=== PATIENT | female | born 1955 | race Caucasian/White ===

== ENCOUNTER 2018-01-08 15:05 | Outpatient (CLI) | payer OTHER ==
--- NOTE | 2018-01-08 16:01 | RAD ---
CHEST 2 VIEWS: Date: 01/08/18 COMPARISON: 07/14/17. HISTORY: Cough. FINDINGS: Normal cardiac silhouette. Pulmonary vessels and pulmonary hilum are normal. Costophrenic angles are clear. No masses or consolidation. No pneumothorax or osseous abnormalities. IMPRESSION: No acute cardiopulmonary process. POS: [facility]
== END 2018-01-08 15:06 | disposition home or self-care (01) ==
LOC: RAD-FRANK 15:05
PROVIDERS: ATTEND Nurse Practitioner Family
DX: J44.9 Chronic obstructive pulmonary disease, unspecified (principal); J06.9 Acute upper respiratory infection, unspecified; I10 Essential (primary) hypertension; R91.1 Solitary pulmonary nodule; J02.9 Acute pharyngitis, unspecified; Z87.39 Personal history of other diseases of the musculoskeletal system and connective tissue
CPT/HCPCS: 71046; 80053; 83036; 83880; 85025; 85379

== ENCOUNTER 2018-01-10 19:21 | Emergency (ER) | payer OTHER ==
--- NOTE | 2018-01-10 20:02 | RAD ---
UPRIGHT PORTABLE CHEST ONE VIEW: 01/10/18 HISTORY: 62-year-old female with cough, increasing shortness of breath, fever and cough. COMPARISON: 01/08/18. FINDINGS: Heart size is normal. The lungs are clear. No pneumonia, edema, or pleural effusion. IMPRESSION: No acute intrathoracic disease. Stable from prior study. POS: [facility]
[2018-01-10] MEDS ORDERED: Acetaminophen 500 MG TAB ONE (20:03)
[2018-01-10] MEDS ORDERED: methylPREDNISolone Sod Succ/PF 125 MG/2 ML VIAL ONE (20:41)
[2018-01-10 20:47] LABS: #Eosinphils 0.1 thou/uL (0.0-0.7); #Lymphocytes 1.9 thou/uL (1.20-3.40); #Monocytes 0.6 thou/uL (0.11-0.59); #Neutrophils 2.6 thou/uL (1.40-6.50); %Basophils 0.3 % (0.0-1.0); %Lymphocytes 36.6 % (21.0-51.0); Mean Corpuscular HGB CONC 35.3 g/dL (32.0-36.0); Mean Corpuscular Hemoglobin 30.1 pg (27.0-31.0); Mean Corpuscular Volume 85.4 fl (81.0-99.0); Mean Platelet Volume 5.8 fL (7.4-10.4); Platelet Count 167 thou/uL (130-400); RBC Distribution Width 12.7 % (11.5-14.5); Red Blood Cell (RBC) Count 4.99 mill/uL (4.20-5.40); White Blood Cell (WBC) Count 5.2 thou/uL (4.8-10.8)
[2018-01-10] MEDS ORDERED: Albuterol Sulfate 2.5 mg/0.5 ml Neb ONE (20:50)
[2018-01-10 21:11] LABS: ALT (SGPT) 16 U/L (8-55); AST (SGOT) 21 U/L (5-34); Albumin 4.6 g/dL (3.4-4.8); Alkaline Phosphatase 94 U/L (40-150); Anion Gap 15 mmol/L (10-20); BUN (Urea Nitrogen) 17 mg/dL (9.8-20.1); Bilirubin, Total 0.5 mg/dL (0.2-1.2); Calc. Creatinine Clearance 0 mL/min (70-130); Calcium 9.8 mg/dL (7.8-10.44); Carbon Dioxide 27 mmol/L (23-31); Chloride 96 mmol/L (98-107); Estimated GFR-MDRD 66; Globulin 2.9 g/dL (2.4-3.5); Glucose 96 mg/dL (80-115); Potassium 3.3 mmol/L (3.5-5.1); Protein, Total 7.5 g/dL (6.0-8.3); Sodium 135 mmol/L (136-145)
[2018-01-10 21:14] LABS: CKMB 1.1 ng/mL (0-6.6); Troponin I Less than 0.010 ng/mL (< 0.028)
== END 2018-01-10 22:30 | disposition home or self-care (01) ==
LOC: ERS 19:21
DX: J18.9 Pneumonia, unspecified organism (principal); J44.0 Chronic obstructive pulmonary disease with (acute) lower respiratory infection; I10 Essential (primary) hypertension; Z79.52 Long term (current) use of systemic steroids
CPT/HCPCS: 71045; 80053; 82553; 83880; 84484; 85025; 93005; 94640; 96361; 96374; 96375; J0696; J2930; J7611; J7620

== ENCOUNTER 2018-03-26 09:52 | Outpatient (CLI) | payer OTHER ==
--- NOTE | 2018-03-26 10:17 | RAD ---
FOUR VIEWS OF THE RIGHT KNEE: COMPARISON: None. HISTORY: Right knee pain. FINDINGS: Four views of the right knee show no evidence of acute fracture or dislocation. There is severe medi al femorotibial osteophyte formation. Small osteophytes are seen in the patellofemoral and lateral f emorotibial compartments. No knee effusion is seen. IMPRESSION: Severe right knee osteoarthritis. POS: [facility]
== END 2018-03-26 09:53 | disposition home or self-care (01) ==
LOC: RAD-FRANK 09:52
PROVIDERS: ATTEND Nurse Practitioner Family
DX: M25.561 Pain in right knee (principal); M79.604 Pain in right leg; M17.11 Unilateral primary osteoarthritis, right knee
CPT/HCPCS: 36415; 80053; 82306; 82607; 82746; 83036; 84443; 85025

== ENCOUNTER 2018-04-14 10:09 | Outpatient (CLI) | payer OTHER ==
--- NOTE | 2018-04-14 11:20 | RAD ---
CHEST TWO VIEWS: INDICATIONS: Dyspnea. COMPARISON: 01/10/2018 FINDINGS: The cardiac silhouette is at the upper limits of normal in size. There is no lobar consolidation, ef fusion, or pneumothorax. IMPRESSION: No focal consolidation. POS: [facility]
== END 2018-04-14 10:10 | disposition home or self-care (01) ==
LOC: RAD 10:09
PROVIDERS: ATTEND Internal Medicine Pulmonary Disease
DX: R06.00 Dyspnea, unspecified (principal)
CPT/HCPCS: 71046

== ENCOUNTER 2018-05-12 08:28 | Outpatient (CLI) | payer OTHER ==
[2018-05-12] MEDS ORDERED: ISOVUE-370 76%-LOCM 1 ML ONE (13:58)
== END 2018-05-12 08:29 | disposition home or self-care (01) ==
LOC: BICCT 08:28
PROVIDERS: ATTEND Nurse Practitioner Family
DX: J42 Unspecified chronic bronchitis (principal); I10 Essential (primary) hypertension; R91.1 Solitary pulmonary nodule; R63.5 Abnormal weight gain; R89.9 Unspecified abnormal finding in specimens from other organs, systems and tissues; R14.0 Abdominal distension (gaseous); R10.9 Unspecified abdominal pain; R93.8 Abnormal findings on diagnostic imaging of other specified body structures; Z87.39 Personal history of other diseases of the musculoskeletal system and connective tissue
CPT/HCPCS: 74177

== ENCOUNTER 2018-05-27 08:26 | Outpatient (CLI) | payer OTHER | END 2018-05-27 08:27 | disposition home or self-care (01) | LOC: BICMAMMO 08:26 | PROVIDERS: ATTEND Nurse Practitioner Family | DX: Z12.31 Encounter for screening mammogram for malignant neoplasm of breast (principal) | CPT/HCPCS: 77063; 77067 ==

== ENCOUNTER 2018-10-07 12:27 | Outpatient (CLI) | payer OTHER ==
[2018-10-07] MEDS ORDERED: Iopamidol 370 76% 100 ML VIAL ONE (13:32)
--- NOTE | 2018-10-07 13:51 | CT ---
CT CHEST WITH IV CONTRAST: HISTORY: Cough. COMPARISON: 06/12/2016 FINDINGS: Minimal bibasilar atelectasis. No pleural fluid, lung mass, pneumothorax, or mediastinal adenopathy. Bovine origin of the great vessels at the aortic arch. IMPRESSION: No significant abnormalities are demonstrated. POS: [facility]
--- NOTE | 2018-10-07 15:07 | ULT ---
DOPPLER ARTERIAL EVALUATION OF BOTH LOWER EXTREMITIES: INDICATION: History of bilateral leg pain, hypertension, and vasculitis. FINDINGS: There are triphasic waveforms from the common femoral artery to the level of the posterior tibial art primo with more biphasic-appearing waveforms within the bilateral dorsalis pedis arteries. No hemodyna mically significant stenosis is evident. IMPRESSION: 1. Mild atherosclerotic disease at the level of the dorsal pedis artery. 2. No hemodynamically significant stenosis demonstrated. POS: [facility]
== END 2018-10-07 12:28 | disposition home or self-care (01) ==
LOC: CT 12:27
PROVIDERS: ATTEND Nurse Practitioner Family
DX: R05 Cough (principal); J44.9 Chronic obstructive pulmonary disease, unspecified; R06.02 Shortness of breath; M94.0 Chondrocostal junction syndrome [Tietze]; I10 Essential (primary) hypertension; I77.6 Arteritis, unspecified; R89.9 Unspecified abnormal finding in specimens from other organs, systems and tissues; M79.604 Pain in right leg; M79.605 Pain in left leg; Z87.39 Personal history of other diseases of the musculoskeletal system and connective tissue; I70.8 Atherosclerosis of other arteries
CPT/HCPCS: 71260; 93923; Q9967

== ENCOUNTER 2019-01-10 14:34 | Emergency (ER) | payer OTHER ==
--- NOTE | 2019-01-10 16:12 | RAD ---
2 views left tibia and fibula. Ruben history: Patient slipped with pain. AP and lateral views left tibia and fibula obtained. No evidence of left tibial or fibular fractures, subluxations or bony lesions seen. IMPRESSION: Unremarkable 2 views left tibia and fibula.
--- NOTE | 2019-01-10 16:15 | RAD ---
4 views left knee. HISTORY: Fall with left knee pain. AP, lateral and both oblique views left knee obtained. Images demonstrate the patient had a previous extensive left knee osteoarthritis. Chronic osteophytes seen. There is depression of the lateral tibial plateau likely due to due to chronic changes. No evidence of acute left knee fractures or bony lesion seen. IMPRESSION: Chronic left knee osteoarthritic changes with no evidence of acute abnormality seen.
== END 2019-01-10 16:29 | disposition home or self-care (01) ==
LOC: ERS 14:34
DX: S80.02XA Contusion of left knee, initial encounter (principal); I10 Essential (primary) hypertension; J44.9 Chronic obstructive pulmonary disease, unspecified; Z79.899 Other long term (current) drug therapy; W01.0XXA Fall on same level from slipping, tripping and stumbling without subsequent striking against object, initial encounter

== ENCOUNTER 2019-09-28 15:24 | Outpatient (CLI) | payer OTHER ==
--- NOTE | 2019-09-28 15:47 | MMO ---
Bilateral MAMMO Bilat Screen [facility]. CLINICAL HISTORY: Patient is 64 years old and is seen for screening. The patient has no family history of breast cancer. The patient has no personal history of cancer. VIEWS: The views performed were: bilateral craniocaudal with tomosynthesis and bilateral mediolateral oblique with tomosynthesis. FILMS COMPARED: The present examination has been compared to a prior imaging study performed at [facility] [place] on 05/27/2018. This study has been interpreted with the assistance of computer-aided detection. MAMMOGRAM FINDINGS: The breasts are heterogeneously dense, which could obscure a lesion on mammography. There are no suspicious masses, suspicious calcifications, or new areas of architectural distortion. IMPRESSION: THERE IS NO MAMMOGRAPHIC EVIDENCE OF MALIGNANCY. A ROUTINE FOLLOW-UP MAMMOGRAM IN 1 YEAR IS RECOMMENDED. THE RESULTS OF THIS EXAM WERE SENT TO THE PATIENT. ACR BI-RADS Category 1 - Negative MAMMOGRAPHY NOTE: 1. A negative mammogram report should not delay a biopsy if a dominant of clinically suspicious mass is present. 2. Approximately 10% to 15% of breast cancers are not detected by mammography. 3. Adenosis and dense breasts may obscure an underlying neoplasm. Reported by: DORA MELÉNDEZ MD Electonically Signed: [id number]
== END 2019-09-28 15:25 | disposition home or self-care (01) ==
LOC: BICMAMMO 15:24
PROVIDERS: ATTEND Nurse Practitioner Family
DX: Z12.31 Encounter for screening mammogram for malignant neoplasm of breast (principal)
CPT/HCPCS: 77063; 77067

== ENCOUNTER 2020-03-14 09:39 | Outpatient (CLI) | payer OTHER ==
--- NOTE | 2020-03-14 09:51 | RAD ---
Exam: Lumbar spine 3 views HISTORY: Pain FINDINGS: 5 lumbar type vertebra. Preserved vertebral body heights. No fracture. Mild osteophyte form ation at multiple levels. No spondylolysis. 5.8 mm of anterolisthesis of L4. Mild hypertrophic changes in the posterior element s at L4-L5 and L5-S1. Visualized bony pelvis and sacrum are intact Densities along the right paraspinal region as well as the left aspect of the pelvis and midline of t he pelvis. Correlation made with previous CT only demonstrates a left hemipelvic density. Correlate clinically. Impression: 1. No significant loss of disc space height. 2. Grade 1 anterolisthesis of L4 3. Mild hypertrophic changes in the posterior elements at L4-L5 and L5-S1. 4. Densities in the abdomen and pelvis as above. Additional imaging if warranted.
== END 2020-03-14 09:40 | disposition home or self-care (01) ==
LOC: RAD-FRANK 09:39
PROVIDERS: ATTEND Nurse Practitioner Family
DX: M79.604 Pain in right leg (principal); I10 Essential (primary) hypertension; R60.0 Localized edema; N39.0 Urinary tract infection, site not specified; M43.16 Spondylolisthesis, lumbar region
CPT/HCPCS: 36415; 72100; 80053; 80061; 82306; 83520; 83880; 84443; 84550; 85025; 86038; 86200; 86225; 87086

== ENCOUNTER 2020-06-16 10:03 | Outpatient (CLI) | payer MEDICARE, OTHER ==
--- NOTE | 2020-06-16 14:04 | CT ---
CT OF CHEST AND ABDOMEN AND PELVIS PERFORMED WITH CONTRAST ENHANCEMENT: 06/16/20 HISTORY: COPD. Lung nodule. Cough. Abdominal pain. Low back pain. Bilateral leg radiculopathy. COMPARISON: CT examination of the chest of 10/07/18 and abdomen and pelvis of 05/12/18. The lungs show some minimal reticular scarring in the lung bases. There is no infiltrative lung proce ss present. No pulmonary nodules identified. No pleural effusions. I do not see any bronchiectatic ch matthew or any definitive emphysematous type change. No significant mediastinal, hilar or axillary adenopathy. CT OF ABDOMEN PERFORMED WITH CONTRAST ENHANCEMENT: Suggestion of some mild fatty change to the liver. No focal lesions. The spleen, pancreas and gallbla dder regions all appear unremarkable. Right and left adrenal glands and right and left kidneys are normal in size. No significant periaorti c or mesenteric adenopathy. CT OF PELVIS PERFORMED WITH CONTRAST ENHANCEMENT: The bladder is not distended. There is no adenopathy, mass or free fluid. Review of osseous structures show arthritic changes of the spine. IMPRESSION: 1. Suggestion of some elements of fatty change of the liver. 2. No acute findings of the chest, abdomen or pelvis. POS: [facility] [place]
== END 2020-06-16 10:04 | disposition home or self-care (01) ==
LOC: BICCT 10:03
PROVIDERS: ATTEND Nurse Practitioner Family
DX: J44.9 Chronic obstructive pulmonary disease, unspecified (principal); R91.1 Solitary pulmonary nodule; I10 Essential (primary) hypertension; R93.89 Abnormal findings on diagnostic imaging of other specified body structures; E66.9 Obesity, unspecified; E87.6 Hypokalemia; R05 Cough; R06.02 Shortness of breath; M79.89 Other specified soft tissue disorders; R73.09 Other abnormal glucose; R14.0 Abdominal distension (gaseous); R10.9 Unspecified abdominal pain; R89.9 Unspecified abnormal finding in specimens from other organs, systems and tissues; R60.0 Localized edema; R53.83 Other fatigue; M43.10 Spondylolisthesis, site unspecified; Z87.39 Personal history of other diseases of the musculoskeletal system and connective tissue; Z23 Encounter for immunization
CPT/HCPCS: 71260; 74177; 82565

== ENCOUNTER 2020-06-21 09:10 | Inpatient (IN) | payer MEDICARE, OTHER ==
[2020-06-21] MEDS ORDERED: Magnevist 469MG/ML 20 ML VIAL ONE (09:22)
[2020-06-21] MEDS ORDERED: Ketorolac Tromethamine 30 MG/ML VIAL ONE (09:47)
[2020-06-21] MEDS ORDERED: Morphine 4 MG/ML VIAL ONE ×2 (09:47→11:11)
[2020-06-21] MEDS ORDERED: Diazepam 5 MG TAB ONE (09:47)
[2020-06-21] MEDS ORDERED: Dexamethasone 10 MG/ML VIAL ONE (09:47)
[2020-06-21 11:23] LABS: #Basophils 0.1 thou/uL (0.0-0.2); #Eosinphils 0.2 thou/uL (0.0-0.7); #Lymphocytes 0.8 thou/uL (1.20-3.40); #Monocytes 0.4 thou/uL (0.11-0.59); #Neutrophils 4.3 thou/uL (1.40-6.50); %Basophils 1.1 % (0.0-1.0); %Eosinophils 2.8 % (0.0-10.0); %Lymphocytes 14.1 % (21.0-51.0); %Monocytes 7.6 % (0.0-10.0); %Neutrophils 74.4 % (42.0-75.0); Hemoglobin 13.7 g/dL (12.0-16.0); Mean Corpuscular Hemoglobin 29.4 pg (27.0-31.0); Mean Corpuscular Volume 86.4 fL (78.0-98.0); Mean Platelet Volume 6.7 fL (7.4-10.4); Platelet Count 175 thou/uL (130-400); RBC Distribution Width 12.9 % (11.5-14.5); Red Blood Cell (RBC) Count 4.66 mill/uL (4.20-5.40); White Blood Cell (WBC) Count 5.8 thou/uL (4.8-10.8)
[2020-06-21 11:50] LABS: ALT (SGPT) 18 U/L (8-55); AST (SGOT) 19 U/L (5-34); Albumin 4.4 g/dL (3.4-4.8); Alkaline Phosphatase 88 U/L (40-110); Anion Gap 13 mmol/L (10-20); BUN (Urea Nitrogen) 8 mg/dL (9.8-20.1); Bilirubin, Total 0.6 mg/dL (0.2-1.2); Calc. Creatinine Clearance 0 mL/min (70-130); Calcium 9.6 mg/dL (7.8-10.44); Carbon Dioxide 27 mmol/L (23-31); Chloride 97 mmol/L (98-107); Estimated GFR-MDRD 65; Globulin 2.7 g/dL (2.4-3.5); Glucose 106 mg/dL (80-115); Potassium 3.1 mmol/L (3.5-5.1); Protein, Total 7.1 g/dL (6.0-8.3); Sodium 134 mmol/L (136-145)
--- NOTE | 2020-06-21 14:17 | PDOC.HHP ---
Hospitalist HPI - History of Present Illness Back pain History of Present Illness: Ms. Larson is a 65-year-old female with a past medical history of hypertension, anxiety, COPD, degenerative disc disease who presents today ED for intractable back pain. Patient reports that her back pain began approximately 2 weeks ago with an acute worsening in severity 1 week ago. She reports she has been moving rooms around her house but has not has no recollection of injuring herself. She describes the pain as starting in the midline of her back above her hip and shooting down into the buttocks and down her leg. She saw her primary care provider for this who referred her to neurologist Dr. Panchal. Pt had CT abdomen/spine/pelvis on 06/16 which showed no acute abnormalities, fracutre, or spinal pathology. Dr. Panchal prescribed tizanidine and tramadol. Patient reports these did not improve her back pain and so she represented to her PCP today who sent her into the ER for pain control and MRI. Patient reports that the pain is been so bad she has been unable to walk or get out of bed without pain. Is able to stand and ambulate, but limited due to pain. Denies numbness or weakness. Denies bladder/bowel incontinence. Denies saddle anesthesia. Denies fever, night-sweats, chills or neck pain. In the ED initial vital signs shows 168/73, 83, 16, 98.5, 97% on RA. Na 134, K 3.1, BUN/Cr 8/0.87, WBC 5.8. CRP 3.34. Pt recieved toradol, morphine for pain control. Hospitalist ROS - Review of Systems Constitutional: denies: fever, chills, sweats, weakness, malaise, other Eyes: denies: pain, vision change, conjunctivae inflammation, eyelid inflammation, redness, other ENT: denies: ear pain, ear discharge, nose pain, nose discharge, nose congestion, mouth pain, mouth swelling, throat pain, throat swelling, other Respiratory: reports: shortness of breath (baseline). denies: cough, dry, hemoptysis, SOB with excertion, pleuritic pain, sputum, wheezing, other Cardiovascular: denies: chest pain, palpitations, orthopnea, paroxysmal noc. dyspnea, edema, light headedness, other Gastrointestinal: denies: nausea, vomiting, abdominal pain, diarrhea, constipation, melena, hematochezia, other Genitourinary: denies: dysuria, frequency, incontinence, hematuria, retention, other Musculoskeletal: reports: back pain, leg pain Skin: denies: rash, lesions, ty, bruising, other Neurological: denies: weakness, numbness, incoordination, change in speech, confusion, seizures, other - Medication Medications: Home medications include: Hydrochlorothiazide 25 mg Montelukast 10 mg Lexapro 20 mg Losartan 25 mg No known allergies Hospitalist History - Past Medical History Other Medical History: Past medical history includes hypertension, anxiety, COPD not on home oxygen - Past Surgical History Other Surgical History: Past surgical history includes spinal surgery on L4-L5 in 1993, appendectomy. - Family History Other Family History: Family history significant for mother who passed of lung cancer and father who passed a renal cancer. - Social History Smoking Status: Never smoker Alcohol: reports: None Drugs: reports: none Living Situation: Alone Activity level: independent ambulation - Exam General Appearance: NAD, awake alert Eye: PERRL, anicteric sclera ENT: normocephalic atraumatic, no oropharyngeal lesions, moist mucosa Neck: supple, symmetric, no JVD, no thyromegaly, no lymphadenopathy, no carotid bruit Heart: RRR, no murmur, no gallops, no rubs, normal peripheral pulses Respiratory: CTAB, no wheezes, no rales, no ronchi, normal chest expansion, no tachypnea, normal percussion Gastrointestinal: soft, non-tender, non-distended, normal bowel sounds, no palpable masses, no hepatomegaly, no splenomegaly, no bruit Extremities: no cyanosis, no clubbing, no edema Skin: normal turgor, no lesions, no rashes Neurological: cranial nerve grossly intact, normal sensation to touch, no weakness, no focal deficits, no new deficit Musculoskeletal: normal tone, normal strength, no muscle wasting Musculoskeletal - other findings: Straight leg test positive, reflexes intact, strength examination limited d Psychiatric: normal affect, normal behavior, A&O x 3 Hospitalist Results - Labs Result Diagrams: 06/22/20 05:17 06/22/20 05:17 Lab results: WBC 5.8 thou/uL (4.8-10.8) 06/21/20 11:11 Hgb 13.7 g/dL (12.0-16.0) 06/21/20 11:11 Hct 40.2 % (36.0-47.0) 06/21/20 11:11 MCV 86.4 fL (78.0-98.0) 06/21/20 11:11 Plt Count 175 thou/uL (130-400) 06/21/20 11:11 Neutrophils % 74.4 % (42.0-75.0) 06/21/20 11:11 Sodium 134 mmol/L (136-145) L 06/21/20 11:11 Potassium 3.1 mmol/L (3.5-5.1) L 06/21/20 11:11 Chloride 97 mmol/L (98-107) L 06/21/20 11:11 Carbon Dioxide 27 mmol/L (23-31) 06/21/20 11:11 BUN 8 mg/dL (9.8-20.1) L 06/21/20 11:11 Creatinine 0.87 mg/dL (0.6-1.1) 06/21/20 11:11 Glucose 106 mg/dL (80-115) 06/21/20 11:11 Calcium 9.6 mg/dL (7.8-10.44) 06/21/20 11:11 Total Bilirubin 0.6 mg/dL (0.2-1.2) 06/21/20 11:11 AST 19 U/L (5-34) 06/21/20 11:11 ALT 18 U/L (8-55) 06/21/20 11:11 Alkaline Phosphatase 88 U/L (40-110) 06/21/20 11:11 C-Reactive Protein 3.34 mg/dL (= or < 0.5) H 06/21/20 11:11 Serum Total Protein 7.1 g/dL (6.0-8.3) 06/21/20 11:11 Albumin 4.4 g/dL (3.4-4.8) 06/21/20 11:11 Hospitalist H&P A/P - Plan Plan: #Back pain 65-year-old female with past medical history of degenerative disc disease with spinal surgery 1993 presents with 2-week acute onset of severe right-sided low back pain. Pain starts at the level of L4, however is in S1 pattern. Patient had outpatient CT chest abdomen pelvis on 06/16 done which did not show any spinal abnormalities or any other acute pathology. Lumbar plain films also did not show acute pathology but did show mild anterolithesis of L4. Patient now with severe pain and weakness to the right lower extremity. Suspect weakness is most likely due to pain as pain patient is able to ambulate. Pt denies numbness or paresthesias. Patient received Toradol, morphine for pain control in the ED which she reports only modest improvement. ED physician contacted neurosurgery who is consulted. Will obtain MRI. MRI L-spine Morphine for pain control Stool softener Heating pad -Neurosurgery consulted #Hypokalemia Potassium 3.1 on admission. Will monitor and replete as needed. #Hypertension Continue home hydrochlorothiazide 25 mg, and losartan 25 mg #Anxiety Continue home Lexapro 20 mg #COPD History of COPD, not on home O2. Patient reports shortness of breath at baseline. Denies any worsening of her shortness of breath O2 sats 97% on room air. DVT prophylaxis: Lovenox Full code Patient has named her daughter Brittany as medical decision-maker. Case discussed with attending physician Dr. De Leon.
[2020-06-21] MEDS ORDERED: Senokot S 8.6-50 MG TAB PO PRN (14:26)
[2020-06-21] MEDS ORDERED: Ondansetron PF 4 MG/2 ML Vial IVP PRN (14:26)
[2020-06-21] MEDS ORDERED: Bisacodyl 5 MG TAB PO PRN (14:26)
[2020-06-21] MEDS ORDERED: Acetaminophen 325 MG TAB PO PRN (14:26)
--- NOTE | 2020-06-21 16:23 | MRI ---
Exam: Lumbar spine MRI with and without contrast HISTORY: Right leg and back pain. No known injury. No history of surgery. FINDINGS: Appropriate T1 marrow signal intensity of the lumbar vertebrae. Lumbar spine vertebral body height is maintained. There is no fracture. No significant STIR hyperintensity to suggest ligamentous injury or vertebral body edema Appropriate signal intensity of the visualized paraspinal muscles and solid organs. Conus medullaris terminates at the superior aspect of L1. There is mild leftward curvature of the lumbar spine. Postcontrast images do not demonstrate any abnormal enhancement with regards to the vertebral bodies. There is no abnormal enhancement within the thecal sac including the conus medullaris and cauda equina. Spondylolisthesis: L1-L2: 2.5 mm of retrolisthesis L2-L3: 3.3 mm of retrolisthesis L4-L5: 4 mm of anterolisthesis T12-L1: Adequate disc hydration. No posterior disc abnormality. No significant central canal stenosis or significant neural foraminal narrowing L1-L2: Disc desiccation with mild loss of disc space height. Broad-based disc bulge minimally flatten s the ventral thecal sac. No significant central canal stenosis. Mild bilateral foraminal narrowing due to disc material. L2-L3: Disc desiccation with mild loss of disc space height. Broad-based disc bulge, ligament flavum thickening and facet hypertrophy result in mild to moderate central canal stenosis. There is fluid in bilateral facet joints. Mild right and vhjy-et-wiyvvcep left neural foraminal narrowing L1 3-L4: Minimal disc desiccation without significant loss of disc space height. Broad-based disc bul ge, ligament flavum thickening and facet hypertrophy result in moderate central canal stenosis. Moderate bilateral neural foraminal narrowing L4-L5: Minimal disc desiccation. No significant loss of disc space height. Broad-based disc bulge, li gament flavum thickening and facet hypertrophy result in severe central canal stenosis. There is fluid in both facet joints. Moderate right and moderate to severe left neural foraminal narrowing L5-S1: There appears to be near complete fusion of the disc space. No significant central canal steno sis. Mild to moderate bilateral neural foraminal narrowing. IMPRESSION: 1. No pathologic enhancement of the vertebral bodies. No abnormal enhancement within the thecal sac i ncluding the cauda equina and conus medullaris 2. Degenerative changes of the lumbar spine as detailed above. There is severe central canal stenosis at L4-L5. Transcribed Date/Time: 06/21/2020 4:42 PM
[2020-06-21] MEDS: Morphine 2 MG/ML VIAL SLOW IVP PRN ×2 (16:32→20:31)
[2020-06-21 17:23] VITALS: BMI 38.9
[2020-06-21] MEDS ORDERED: Potassium Chloride 20 MEQ TAB PO SCH (18:45)
[2020-06-22] MEDS: Morphine 2 MG/ML VIAL SLOW IVP PRN ×5 (00:51→18:06)
[2020-06-22 05:48] LABS: #Lymphocytes 0.7 thou/uL (1.20-3.40); #Monocytes 0.3 thou/uL (0.11-0.59); #Neutrophils 5.5 thou/uL (1.40-6.50); %Basophils 0.5 % (0.0-1.0); %Eosinophils 0.2 % (0.0-10.0); %Lymphocytes 10.5 % (21.0-51.0); %Monocytes 5.2 % (0.0-10.0); %Neutrophils 83.7 % (42.0-75.0); Hemoglobin 14.1 g/dL (12.0-16.0); Mean Corpuscular HGB CONC 34.9 g/dL (32.0-36.0); Mean Corpuscular Hemoglobin 30.3 pg (27.0-31.0); Mean Corpuscular Volume 86.7 fL (78.0-98.0); Platelet Count 205 thou/uL (130-400); RBC Distribution Width 12.8 % (11.5-14.5); Red Blood Cell (RBC) Count 4.66 mill/uL (4.20-5.40); White Blood Cell (WBC) Count 6.6 thou/uL (4.8-10.8)
[2020-06-22 06:16] LABS: Anion Gap 16 mmol/L (10-20); BUN (Urea Nitrogen) 10 mg/dL (9.8-20.1); Calc. Creatinine Clearance 95 mL/min (70-130); Calcium 9.5 mg/dL (7.8-10.44); Carbon Dioxide 25 mmol/L (23-31); Chloride 96 mmol/L (98-107); Estimated GFR-MDRD 65; Glucose 187 mg/dL (80-115); Potassium 3.5 mmol/L (3.5-5.1); Sodium 133 mmol/L (136-145)
[2020-06-22] MEDS: Enoxaparin Sodium 40 MG/0.4 ML SYRINGE SC SCH (09:01)
[2020-06-22 12:50] LABS: SARS-CoV-2 MS2 Positive; SARS-CoV-2 N Gene Negative; SARS-CoV-2 S Gene Negative; SARS-CoV-2 by NAA Not Detected (NotDetected); SARS-CoV-2 orf1ab Negative
[2020-06-22] MEDS ORDERED: Acetaminophen/Codeine 30-300mg Tablet PO PRN (16:18)
[2020-06-22] MEDS: Acetaminophen/Codeine 30-300mg Tablet PO PRN (16:50)
[2020-06-22] MEDS: tiZANidine HCl 4 MG TAB PO PRN (16:50)
[2020-06-22] MEDS ORDERED: Losartan 25 MG TAB PO PRN (18:24)
--- NOTE | 2020-06-22 18:30 | PDOC.HOSPP ---
- Subjective Encounter Date: 06/22/20 Encounter Time: 18:25 Subjective: f/u for intractable back pain with MRI L-spine showing severe central canal stenosis L4-L5. Receiving Morphine Sulfate IV, Tramadol/Zanaflex. No bowel or bladder incontinence. - Objective Vital Signs & Weight: Vital Signs (12 hours) Temp Pulse Resp BP Pulse Ox 06/22/20 16:20 98.2 F 60 16 142/74 H 96 06/22/20 11:50 98.1 F 63 16 112/68 97 06/22/20 07:31 97.9 F 73 14 133/73 97 Weight Weight 206 lb I&O: 06/21/20 06/22/20 06/23/20 06:59 06:59 06:59 Intake Total 520 470 Balance 520 470 Result Diagrams: 06/22/20 05:17 06/22/20 05:17 Radiology Reviewed by me: Yes (MRI L-spine - severe central canal stenosis L4- L5) Hospitalist ROS - Medication Medications: Active Medications Generic Name Dose Route Start Last Admin Trade Name Freq PRN Reason Stop Dose Admin Acetaminophen 650 mg 06/21/20 14:26 06/21/20 19:07 Acetaminophen 325 Mg Tab PO 650 mg Q4H PRN Administration Headache/Fever/Mild Pain (1-3) Acetaminophen/Codeine Phosphate 2 tab 06/22/20 16:18 06/22/20 16:50 Acetaminophen/Codeine 30-300mg Tablet PO 2 tab Q6H PRN Administration Severe Pain (7-10) Enoxaparin Sodium 40 mg 06/22/20 09:00 06/22/20 09:01 Enoxaparin Sodium 40 Mg/0.4 Ml Syringe SC 40 mg 0900 BITA Administration Morphine Sulfate 2 mg 06/21/20 14:35 06/22/20 18:06 Morphine 2 Mg/Ml Vial SLOW IVP 2 mg Q4H PRN Administration Moderate to Severe Pain (6-10) Sodium Chloride 10 ml 06/21/20 14:26 06/22/20 13:17 Flush - Normal Saline 10 Ml Syringe IVF 10 ml PRN PRN Administration Saline Flush Tizanidine HCl 4 mg 06/22/20 16:17 06/22/20 16:50 Tizanidine Hcl 4 Mg Tab PO 4 mg TIDPRN PRN Administration Muscle Spasm - Exam General Appearance: NAD, awake alert Eye: PERRL, anicteric sclera ENT: normocephalic atraumatic, no oropharyngeal lesions Neck: supple, symmetric, no JVD, no thyromegaly, no lymphadenopathy Heart: RRR, no gallops, no rubs, normal peripheral pulses Heart - other findings: S1, S2 Respiratory: CTAB, no wheezes, no rales, no ronchi, normal chest expansion Gastrointestinal: soft, non-tender, non-distended, normal bowel sounds Extremities: no cyanosis, no clubbing, no edema Skin: normal turgor, no lesions Neurological: cranial nerve grossly intact, no new deficit Neurological - other findings: + SLR bilat Musculoskeletal: normal tone, normal strength Psychiatric: normal affect, A&O x 3 Hosp A/P (1) Intractable low back pain Code(s): M54.5 - LOW BACK PAIN Status: Acute Plan: Continue conservative mgmt, heating pad, add Toradol 30mg IV q6h, Morphine Sulfate/T#3, PT/OT (2) Radiculopathy Code(s): M54.10 - RADICULOPATHY, SITE UNSPECIFIED Status: Acute Plan: See #1 above (3) Hypokalemia Code(s): E87.6 - HYPOKALEMIA Status: Acute Plan: KCL supplementation, serial monitoring (4) HTN (hypertension) Code(s): I10 - ESSENTIAL (PRIMARY) HYPERTENSION Status: Chronic Qualifiers: Hypertension type: essential hypertension Qualified Code(s): I10 - Essential (primary) hypertension Plan: Resume home BP regimen - Plan plan discussed w/ family, out of bed/ambulate, DVT proph w/SCDs Stable currently Add Toradol IV Continue Morphine Sulfate Continue Tylenol #3 Heat pad Restoril 15mg HS Mag citrate AM lab: BMP, CBC
[2020-06-22] MEDS ORDERED: Temazepam 15 MG CAP PO PRN (18:44)
[2020-06-22] MEDS ORDERED: Ketorolac Tromethamine 30 MG/ML VIAL IVP SCH (18:45)
[2020-06-22] MEDS ORDERED: Magnesium Citrate 300 ML BOT PO SCH (19:00)
[2020-06-23] MEDS: Ketorolac Tromethamine 30 MG/ML VIAL IVP SCH ×3 (00:21→11:37)
[2020-06-23 05:29] LABS: #Lymphocytes 1.4 thou/uL (1.20-3.40); #Monocytes 0.6 thou/uL (0.11-0.59); #Neutrophils 4.7 thou/uL (1.40-6.50); %Basophils 0.2 % (0.0-1.0); %Eosinophils 0.7 % (0.0-10.0); %Lymphocytes 20.2 % (21.0-51.0); %Monocytes 8.3 % (0.0-10.0); %Neutrophils 70.6 % (42.0-75.0); Hemoglobin 12.6 g/dL (12.0-16.0); Mean Corpuscular HGB CONC 34.3 g/dL (32.0-36.0); Mean Corpuscular Hemoglobin 30.1 pg (27.0-31.0); Mean Corpuscular Volume 87.6 fL (78.0-98.0); Mean Platelet Volume 7.1 fL (7.4-10.4); Platelet Count 191 thou/uL (130-400); RBC Distribution Width 12.8 % (11.5-14.5); White Blood Cell (WBC) Count 6.7 thou/uL (4.8-10.8)
[2020-06-23 05:36] LABS: Anion Gap 13 mmol/L (10-20); BUN (Urea Nitrogen) 16 mg/dL (9.8-20.1); Calc. Creatinine Clearance 94 mL/min (70-130); Calcium 8.7 mg/dL (7.8-10.44); Carbon Dioxide 25 mmol/L (23-31); Chloride 100 mmol/L (98-107); Estimated GFR-MDRD 64; Glucose 104 mg/dL (80-115); Potassium 3.2 mmol/L (3.5-5.1); Sodium 135 mmol/L (136-145)
[2020-06-23] MEDS: Enoxaparin Sodium 40 MG/0.4 ML SYRINGE SC SCH (08:35)
[2020-06-23] MEDS ORDERED: Fluticasone Propionate Nasal Spray 16 gm Bottle NASAL SCH (09:00)
[2020-06-23] MEDS ORDERED: Loratadine 10 MG TAB PO SCH (09:00)
[2020-06-23] MEDS ORDERED: Montelukast Sodium 10 mg Tablet PO SCH (09:00)
[2020-06-23] MEDS ORDERED: Potassium Chloride 10 MEQ TAB PO SCH (09:00)
[2020-06-23] MEDS ORDERED: Hydrochlorothiazide 25 MG TAB PO SCH (09:00)
[2020-06-23] MEDS ORDERED: Escitalopram Oxalate 20 mg Tablet PO SCH (09:00)
[2020-06-23 12:41] VITALS: BP 137/74; TEMP 97.8
[2020-06-23] MEDS: tiZANidine HCl 4 MG TAB PO PRN (16:03)
[2020-06-23] MEDS: Acetaminophen/Codeine 30-300mg Tablet PO PRN (16:03)
[2020-06-23] MEDS ORDERED: Acetaminophen/Codeine 30-300mg Tablet PO PRN (16:21)
[2020-06-23] MEDS ORDERED: Potassium Chloride 20 MEQ TAB PO SCH (16:45)
--- NOTE | 2020-06-28 09:36 | DIS ---
DATE OF ADMISSION: 06/22/2020 DATE OF DISCHARGE: 06/23/2020 PRIMARY CARE PROVIDER: Leida Gamez. DISCHARGE DIAGNOSES: 1. Lumbar spinal stenosis. 2. Chronic back pain. 3. Degenerative changes of lumbar spine. CONDITION OF PATIENT ON THE DAY OF DISCHARGE: Stable. I assessed Ms. Mandujano on the day of discharge. She denies any chest pain or shortness of breath. Vital signs are stable. S1 and S2 are heard, regular. Lungs are clear to auscultation bilaterally. CONSULTATIONS DURING THIS HOSPITALIZATION: Neurosurgery, Dr. Schwartz. HOSPITAL COURSE: Ms. Mandujano is a pleasant 65-year-old lady, who was admitted to [facility] on June 22, 2020, for chronic back pain. MRI of the lumbar spine showed severe central canal stenosis at L4-L5 and degenerative changes of the lumbar spine. She was seen by Neurosurgery Service. Following the Neurosurgery consultation, she has been advised to follow up with her primary neurosurgeon, Dr. Panchal as an outpatient. DISCHARGE MEDICATIONS: I am giving her a prescription for Tylenol No. 3 one tablet every 8 hours as needed, 15 doses to be dispensed. Otherwise, no change was made to her pre-admission home medications. ACTIVITY: As tolerated. DIET: Heart healthy. DISCHARGE DESTINATION: Home. TIME SPENT: Total amount of time spent coordinating this discharge: 25 minutes. Job ID: [id number]
== END 2020-06-23 17:51 | disposition home or self-care (01) | DRG 552 ==
LOC: ERS 09:10 → SURG A 14:27 → OBSVTOIN 06-22 18:51
PROVIDERS: ADMIT Student in an Organized Health Care Education/Training Program; ATTEND Student in an Organized Health Care Education/Training Program
PROC: 3E0234Z Introduction of Serum, Toxoid and Vaccine into Muscle, Percutaneous Approach (ICD-10-PCS; principal; 2020-06-22)
DX: M54.16 Radiculopathy, lumbar region (principal); M48.061 Spinal stenosis, lumbar region without neurogenic claudication; F41.9 Anxiety disorder, unspecified; I10 Essential (primary) hypertension; E87.6 Hypokalemia; J44.9 Chronic obstructive pulmonary disease, unspecified; Z20.828 Contact with and (suspected) exposure to other viral communicable diseases; Z79.899 Other long term (current) drug therapy; Z90.49 Acquired absence of other specified parts of digestive tract; Z23 Encounter for immunization
CPT/HCPCS: 36415; 36600; 72158; 80048; 80053; 85025; 86140; 87635; 90471; 90732; 96372; 96374; 96376; A9579; G0009; G0378; J1100; J1650; J1885; J2270; U0003

== ENCOUNTER 2020-07-12 06:25 | Outpatient (CLI) | payer MEDICARE, OTHER ==
[2020-07-12 10:41] LABS: Hemoglobin 13.9 g/dL (12.0-16.0); Mean Corpuscular HGB CONC 34.5 G/DL (32.0-36.0); Mean Corpuscular Hemoglobin 28.8 PG (27.0-33.0); Mean Corpuscular Volume 83.4 fl (80.0-100.0); Platelet Count 184 10x3/uL (130-400); RBC Distribution Width 13.5 % (11.5-14.5); Red Blood Cell (RBC) Count 4.83 10x6/uL (3.90-5.20); White Blood Cell (WBC) Count 3.2 10x3/uL (4.5-11.0)
[2020-07-12 11:29] LABS: Anion Gap 16 mmol/L (10-20); BUN (Urea Nitrogen) 10 mg/dL (9.8-20.1); Calc. Creatinine Clearance 0 mL/min (70-130); Calcium 9.7 mg/dL (7.8-10.44); Carbon Dioxide 31 mmol/L (23-31); Chloride 95 mmol/L (98-107); Estimated GFR-MDRD 60; Glucose 148 mg/dL (80-115); Potassium 3.1 mmol/L (3.5-5.1); Sodium 139 mmol/L (136-145)
--- NOTE | 2020-07-12 21:10 | EKG ---
Test Reason : PREOP Blood Pressure : / mmHG Vent. Rate : 074 BPM Atrial Rate : 074 BPM P-R Int : 166 ms QRS Dur : 092 ms QT Int : 400 ms P-R-T Axes : 071 061 065 degrees QTc Int : 444 ms Normal sinus rhythm Normal ECG No previous ECGs available Confirmed by Tha CARMEN ([id number]) on 07/12/2020 9:10:25 PM Referred By: DERICK Confirmed By:Tha CARMEN
[2020-07-13 14:43] LABS: SARS-CoV-2 MS2 Positive; SARS-CoV-2 N Gene Negative; SARS-CoV-2 S Gene Negative; SARS-CoV-2 by NAA Not Detected (NotDetected); SARS-CoV-2 orf1ab Negative
== END 2020-07-12 06:26 | disposition home or self-care (01) ==
LOC: LABBT 06:25
PROVIDERS: ATTEND Neurological Surgery
DX: Z01.818 Encounter for other preprocedural examination (principal); Z20.828 Contact with and (suspected) exposure to other viral communicable diseases; M43.16 Spondylolisthesis, lumbar region
CPT/HCPCS: 80048; 85027; 93005; U0003; 87635; 93010

== ENCOUNTER 2020-07-17 07:04 | Observation (INO) | payer MEDICARE, OTHER ==
[2020-07-17] MEDS ORDERED: Fentanyl 100 MCG/2 ML VIAL ONE ×3 (09:33→11:41)
[2020-07-17] MEDS ORDERED: Promethazine HCl 25 MG/ML VIAL SLOW IVP PRN (10:36)
[2020-07-17] MEDS ORDERED: Ondansetron HCl/PF 4 MG/2 ML Vial IVP PRN ×2 (10:36→12:00)
[2020-07-17] MEDS ORDERED: Promethazine HCl 25 MG/ML VIAL IM PRN ×2 (10:36→14:30)
--- NOTE | 2020-07-17 11:20 | OP ---
DATE OF PROCEDURE: 07/17/2020 TRANSMISSION AND PROTECTION ENGINEER: Keith. PROCEDURES PERFORMED: 1. L4-L5 laminectomy. 2. Posterolateral arthrodesis. 3. BMP cancellous bone chips. 4. Local morselized autograft. DESCRIPTION OF PROCEDURE: The patient was brought to the operating room and intubated. She was rolled in a prone position on gel-filled chest rolls. An incision was made, exposing L4 and L5, which incorporated part of the previous incision. We exposed L4 and L5 and did seem that she had surgery at the L5 level previously. We performed complete L5 and inferior L4 laminectomy, was completely decompressing the L4-L5 interspace. We did not attempt to place hardware, but did prepare the posterolateral surfaces for the purpose of arthrodesis and in onlay fashion placed a combination of BMP on Gelfoam with cancellous bone chips and local morselized autograft in the lateral recesses, particularly on the right. The wound was extensively irrigated. Maximum hemostasis was secured. Vancomycin powder was applied and the wound was closed in anatomic layers over a drain. Job ID: [id number]
[2020-07-17] MEDS ORDERED: Morphine 4 MG/ML VIAL ONE (11:41)
[2020-07-17] MEDS ORDERED: HYDROmorphone 0.5 MG/0.5 ML SYRINGE ONE ×3 (11:58→12:36)
[2020-07-17] MEDS ORDERED: Promethazine HCl 25 MG/ML VIAL IM/IV PRN (12:00)
[2020-07-17] MEDS ORDERED: Dexamethasone 20 MG/5 ML VIAL ONE (12:12)
[2020-07-17] MEDS ORDERED: Ketorolac Tromethamine 30 MG/ML VIAL ONE (12:12)
[2020-07-17] MEDS ORDERED: Glycopyrrolate 0.2 MG/ML 5 ML SYRINGE ONE (12:12)
[2020-07-17] MEDS ORDERED: Labetalol HCl 100 MG/20 ML VIAL ONE (12:12)
[2020-07-17] MEDS ORDERED: Rocuronium Bromide 10 MG/ML (10ML VIAL) ONE (12:12)
[2020-07-17] MEDS ORDERED: Lidocaine 1% PF 5 ML VIAL ONE (12:12)
[2020-07-17] MEDS ORDERED: PROPOFOL 200 MG/20 ML VIAL ONE (12:12)
[2020-07-17] MEDS ORDERED: Ondansetron PF 4 MG/2 ML Vial ONE (12:12)
[2020-07-17] MEDS ORDERED: Milk Of Magnesia 30 ML UDCUP PO PRN (14:30)
[2020-07-17] MEDS ORDERED: Morphine 4 MG/ML VIAL SLOW IVP PRN (14:30)
[2020-07-17] MEDS ORDERED: Morphine 2 MG/ML VIAL SLOW IVP PRN (14:30)
[2020-07-17] MEDS ORDERED: Mag-Al 1200 mg/1200 mg/30 ML UDCUP PO PRN (14:30)
[2020-07-17] MEDS ORDERED: Ondansetron PF 4 MG/2 ML Vial IM PRN (14:30)
[2020-07-17] MEDS ORDERED: Promethazine 25 MG TAB PO PRN (14:30)
[2020-07-17] MEDS ORDERED: Acetaminophen/Codeine 30-300mg Tablet PO PRN (14:30)
[2020-07-17] MEDS ORDERED: traMADol HCl 50 MG TAB PO PRN ×2 (14:30)
[2020-07-17] MEDS ORDERED: Promethazine HCl 12.5 MG SUPP PR PRN (14:30)
[2020-07-17] MEDS ORDERED: Non-Formulary Medication 1 EACH PO PRN (14:33)
[2020-07-17] MEDS: tiZANidine HCl 4 MG TAB PO PRN (15:22)
[2020-07-17] MEDS: Acetaminophen/Codeine 30-300mg Tablet PO PRN ×2 (15:23→21:16)
[2020-07-17] MEDS: Sodium Chloride 0.9% 1,000 ML IV SCH (15:25)
[2020-07-17 15:47] VITALS: BMI 37.8
[2020-07-17] MEDS: CEFAZOLIN 2 GM in Premix Bag 1 BAG IVPB SCH (17:16)
[2020-07-17] MEDS ORDERED: Montelukast Sodium 10 mg Tablet PO SCH (21:00)
[2020-07-18] MEDS: CEFAZOLIN 2 GM in Premix Bag 1 BAG IVPB SCH ×2 (00:37→09:38)
[2020-07-18] MEDS: Acetaminophen/Codeine 30-300mg Tablet PO PRN ×3 (02:37→09:31)
[2020-07-18] MEDS: Sodium Chloride 0.9% 1,000 ML IV SCH (02:43)
[2020-07-18] MEDS: tiZANidine HCl 4 MG TAB PO PRN ×2 (06:37→11:12)
--- NOTE | 2020-07-18 07:18 | DIS ---
DATE OF ADMISSION: 07/17/2020 DATE OF DISCHARGE: 07/18/2020 DISCHARGE SUMMARY: The patient is a 65-year-old female, recently evaluated in our office for progressive back and leg pain with neurogenic claudication. She was found to have spondylolisthesis and stenosis at L4-L5. She underwent L4-L5 laminectomy and fusion onlay with BMP on 07/18/2020. She was fitted with an LSO brace following this procedure and transitioned to the Med/Surg floor. Her pain was well controlled with p.o. medications, she is tolerating a regular diet, and she is voiding appropriately. She has been mobilizing easily in the department and walked several times around without any difficulty. Her CHANEL drain had minimal output only 20 mL over the first night and was removed on postoperative day #1. I will plan to dismiss the patient to home. I have discussed home care precautions, provided with scripts for Tylenol No. 3 and tramadol. [employer]ICER [employer] was checked prior to discharge. Job ID: [id number]
[2020-07-18] MEDS ORDERED: Potassium Chloride 10 MEQ TAB PO SCH (08:00)
[2020-07-18] MEDS ORDERED: Hydrochlorothiazide 25 MG TAB PO SCH (09:00)
[2020-07-18] MEDS ORDERED: Fluticasone Propionate Nasal Spray 16 gm Bottle NASAL SCH (09:00)
[2020-07-18] MEDS ORDERED: Escitalopram Oxalate 20 mg Tablet PO SCH (09:00)
[2020-07-18] MEDS ORDERED: FLU VACC QS2020-21(65YR UP)/PF 240 MCG/0.7 ML SYRINGE IM ONE (09:00)
[2020-07-18 11:01] VITALS: BP 116/68; TEMP 97.9
== END 2020-07-18 11:30 | disposition home or self-care (01) ==
LOC: SDC 07:04 → SURG A 11:35
PROVIDERS: ADMIT Neurological Surgery; ATTEND Neurological Surgery
PROC: 0SG00AJ Fusion of Lumbar Vertebral Joint with Interbody Fusion Device, Posterior Approach, Anterior Column, Open Approach (ICD-10-PCS; principal; 2020-07-17)
DX: M43.16 Spondylolisthesis, lumbar region (principal); I10 Essential (primary) hypertension; J44.9 Chronic obstructive pulmonary disease, unspecified; Z79.899 Other long term (current) drug therapy; Z88.5 Allergy status to narcotic agent; Z88.6 Allergy status to analgesic agent
CPT/HCPCS: 76000; 96365; G0378; J0690; J1100; J1170; J1885; J2270; J2405; J2704; J3010; J3370

== ENCOUNTER 2020-08-08 12:31 | Outpatient (CLI) | payer MEDICARE, OTHER ==
--- NOTE | 2020-08-08 12:52 | RAD ---
EXAM: Lumbar spine 2 views: HISTORY: Spondylolisthesis of lumbar region COMPARISON: 06/21/2020 lumbar spine MRI FINDINGS: Laminectomy changes at L3, L4, and L5 with surgical midline hoa in place. No evidence for acute fracture or dislocation or significant acute osseous process. Alignment:Stable retrolisthesis of L3 on L4 and moderate anterolisthesis of L4 and L5. Discs: Multilevel disc space narrowing most marked at L5-S1 which may be partially fused. No evidence for a focal bone lesion. IMPRESSION: Postop changes as above.
== END 2020-08-08 12:32 | disposition home or self-care (01) ==
LOC: TBSIIMAG 12:31
PROVIDERS: ATTEND Neurological Surgery
DX: M43.16 Spondylolisthesis, lumbar region (principal); Z98.890 Other specified postprocedural states
CPT/HCPCS: 72100

== ENCOUNTER 2020-09-12 13:26 | Inpatient (IN) | payer MEDICARE, OTHER ==
[~2020-09-12 13:26] MED LIST: Iopamidol-370 76% 500 ML 1 ML ONE
[2020-09-12 14:20] LABS: #Eosinphils 0.1 thou/uL (0.0-0.7); #Lymphocytes 0.9 thou/uL (1.20-3.40); #Monocytes 0.4 thou/uL (0.11-0.59); #Neutrophils 6.9 thou/uL (1.40-6.50); %Basophils 0.4 % (0.0-1.0); %Eosinophils 0.8 % (0.0-10.0); %Lymphocytes 10.3 % (21.0-51.0); %Monocytes 4.6 % (0.0-10.0); Hemoglobin 15.4 g/dL (12.0-16.0); Mean Corpuscular HGB CONC 32.8 g/dL (32.0-36.0); Mean Corpuscular Hemoglobin 28.3 pg (27.0-31.0); Mean Corpuscular Volume 86.5 fL (78.0-98.0); RBC Distribution Width 12.7 % (11.5-14.5); Red Blood Cell (RBC) Count 5.45 mill/uL (4.20-5.40); White Blood Cell (WBC) Count 8.3 thou/uL (4.8-10.8)
--- NOTE | 2020-09-12 14:26 | RAD ---
EXAM: CHEST ONE VIEW HISTORY: Nausea, vomiting, and diarrhea. Abdominal problems. COMPARISON: 01/10/2018. FINDINGS: Cardiac silhouette is magnified by projection. The pulmonary vasculature is within normal limits. The lungs remain clear. No interval change from prior study. IMPRESSION: No acute cardiopulmonary process.
[2020-09-12 14:30] LABS: ALT (SGPT) 58 U/L (8-55); AST (SGOT) 66 U/L (5-34); Albumin 4.7 g/dL (3.4-4.8); Alkaline Phosphatase 112 U/L (40-110); Anion Gap 22 mmol/L (10-20); BUN (Urea Nitrogen) 14 mg/dL (9.8-20.1); Bilirubin, Total 0.9 mg/dL (0.2-1.2); Calc. Creatinine Clearance 0 mL/min (70-130); Calcium 9.2 mg/dL (7.8-10.44); Carbon Dioxide 18 mmol/L (23-31); Chloride 102 mmol/L (98-107); Glucose 133 mg/dL (80-115); Lipase 27 U/L (8-78); Potassium 3.2 mmol/L (3.5-5.1); Protein, Total 7.7 g/dL (6.0-8.3); Sodium 139 mmol/L (136-145)
[2020-09-12 14:38] LABS: Mean Platelet Volume 7.4 fL (7.4-10.4); Platelet Count 104 thou/uL (130-400); Platelet Morphology Comment Appears Decreased; RBC Morphology Normal
[2020-09-12] MEDS ORDERED: Haloperidol Lactate 5 MG/ML VIAL SLOW IVP SCH (14:45)
[2020-09-12 15:15] LABS: Bacteria/HPF None Seen HPF (None Seen); Bilirubin Negative (Negative); Blood, Urine Trace (Negative); Clarity Clear (Clear); Glucose, Urine (Dipstick) Normal (Negative); Ketone, Urine 20 mg/dL (Negative); Leukocyte Negative Leu/uL (Negative); Nitrite Negative (Negative); Protein, Urine (Dipstick) Negative (Neg-Trace); RBC/HPF 0-3 HPF (0-3); Specific Gravity, Urine 1.015 (1.002-1.036); Squamous Epithelial 0-3 HPF (0-3); Urobilinogen Normal mg/dL (Less than 2); WBC/HPF 0-3 HPF (0-3); pH, Urine 5.5 (5.0-9.0)
[2020-09-12] MEDS ORDERED: Aspirin Chewable 81 MG TAB ONE (15:33)
--- NOTE | 2020-09-12 15:36 | CT ---
EXAM: CT Abdomen Pelvis W Con PROVIDED CLINICAL HISTORY: Abdominal pain COMPARISON: 06/16/2020 FINDINGS: The visualized lung bases are free of significant opacity. There is fluid density seen about the pancreatic head and proximal pancreatic body with interstitial edema. There is normal pancreatic enhancement. There is no evidence for a focal pancreatic fluid collection. The splenic vein appears patent. The liver, spleen, kidneys and adrenal glands appear unremarkable. There is conspicuous gallbladder distention with suggestion of pericholecystic fluid. There is no bow el dilatation, additional inflammatory fat stranding, free intraperitoneal fluid or free intraperitoneal air apparent. There is no evidence for appendicitis. The regional major vascular structures appear unremarkable. There is no evidence for regional lymph n ode enlargement. The osseous structures demonstrate no concerning lytic or blastic lesions. Postoperative changes are seen involving the lumbar spine. IMPRESSION: 1. Findings compatible with uncomplicated acute pancreatitis. 2. Conspicuous gallbladder distention with suggestion of pericholecystic fluid. Consider correlation with right upper quadrant ultrasound as indicated.
[2020-09-12 15:52] LABS: CKMB 1.4 ng/mL (0-6.6)
--- NOTE | 2020-09-12 16:35 | ULT ---
Exam: Right upper quadrant ultrasound: HISTORY: Right upper quadrant abdominal pain. COMPARISON: CT abdomen on 09/12/2020 FINDINGS: Liver: Within normal limits Gallbladder: There is a large shadowing calculus seen in the region of the neck of the gallbladder me asuring 1.8 cm. The gallbladder is distended measuring 10.4 cm in length. Small amount of pericholecystic fluid is identified. No gallbladder wall thickening is present. Utility Sales And Service Manager was not able to elicit a sonographic Joya's sign. Common bile duct: The common duct is normal in caliber measuring 0.2 cm in diameter. Pancreas: Limited visualized portions of the pancreas demonstrate a normal sonographic appearance. No peripancreatic fluid or fluid collection is identified. Right kidney: Right kidney demonstrates a normal sonographic appearance. The right kidney measures 1 1.4 cm in length. IVC: The visualized IVC demonstrates a normal sonographic appearance. IMPRESSION: 1. Cholelithiasis and gallbladder distention with a tiny amount of adjacent pericholecystic fluid. Ch olecystitis in the correct clinical scenario is a possibility. 2. Common duct is normal in caliber.
[2020-09-12] MEDS ORDERED: Morphine 4 MG/ML VIAL ONE ×2 (17:28→20:49)
[2020-09-12] MEDS ORDERED: Ondansetron PF 4 MG/2 ML Vial ONE ×2 (17:28→20:49)
[2020-09-12 17:43] LABS: Troponin I 0.794 ng/mL (< 0.028)
[2020-09-12] MEDS ORDERED: hydrALAZINE 20 MG/ML VIAL ONE ×2 (18:31→19:57)
--- NOTE | 2020-09-12 20:04 | HP ---
PRIMARY CARE PHYSICIAN: Leida Gamez, [employer] HEAD-C CHIEF COMPLAINT: Abdominal pain and epigastric pain. HISTORY OF PRESENT ILLNESS: Ms. Mandujano is a very pleasant 65-year-old female, who has history of hypertension, COPD. She says that at about 10:00 a.m. this morning, she started having severe pain in her stomach, and in the epigastric and mid chest regions. She says it was a squeezing like pain and very severe. She started vomiting almost continuously. She cannot remember how many times she threw up. She also noted some shortness of breath when this happened as well. She denies any fevers or chills. No cough or congestion. No diarrhea or loose stools. However, due to her symptoms, she came to the emergency room for evaluation. There, it was found that she was noted to have slightly elevated liver function test as well as slightly elevated alkaline phosphatase. Abdominal ultrasound revealed cholelithiasis with tiny amount of pericholecystic fluid and she also had an elevated troponin and she is being admitted for probable acute cholecystitis as well as NSTEMI. The patient denies having any heart problems before. Prior to this, she was active and able to climb the steps without any difficulty. When asked if this was related to food, she says she ate about two pieces of toast early this morning, but that was 2 hours before the episode. Prior to this, no other symptoms. No leg pain or swelling. REVIEW OF SYSTEMS: All systems were reviewed and are negative except for that mentioned in the History of Present Illness. PAST MEDICAL HISTORY: Significant for hypertension, anxiety, COPD, and degenerative joint disease. PAST SURGICAL HISTORY: She had a L4-L5 back surgery in July 17 of this past year and an appendectomy. SOCIAL HISTORY: Denies any smoking or alcohol use. No drug use. She is . She has one daughter. Her name is Brittany Mendiola and she would like her to be her surrogate decision maker. FAMILY HISTORY: No history of any heritable diseases. CURRENT MEDICATIONS: She says she does not know the name of her medications, these will need to be reconciled. PHYSICAL EXAMINATION: GENERAL: She is alert and oriented. She appears to be in no acute distress, other than some abdominal discomfort. VITAL SIGNS: Blood pressure was 178/68 up to 194/94, heart rate 67, respiratory rate of 15, and temperature is 97.8. HEENT: Pupils are equal, round, and reactive. Extraocular muscles are intact. Her sclerae are anicteric. Throat; no erythema, no exudates. NECK: No adenopathy. No bruits. LUNGS: Clear to auscultation. There are no wheezing, no rales, no rhonchi. CARDIOVASCULAR: She had a normal S1 and S2. No S3 or S4. No murmurs, clicks, or rubs. ABDOMEN: Soft. She had exquisite epigastric tenderness and some tenderness in the right upper quadrant. There was some voluntary guarding, but no rebound. Bowel sounds are present. EXTREMITIES: On her extremities, there is no edema. No calf tenderness. No joint effusions. NEUROLOGIC: Nonfocal. SKIN AND INTEGUMENT: No skin changes. No rash. LABORATORY DATA: Sodium 139, potassium 3.2, chloride is 102, CO2 is 18, BUN of 14, creatinine 0.9, and glucose is 133. White blood cell count 8.3, hemoglobin 15.4, hematocrit is 47.1, and platelet count is 104. IMAGING DATA: On the ultrasound, again there was evidence of cholelithiasis and some pericholecystic fluid. She had a CT of the abdomen and pelvis. There was some findings compatible with acute pancreatitis and conspicuous gallbladder distention. ASSESSMENT AND PLAN: 1. This is a pleasant 65-year-old female, who presents with severe epigastric pain, elevated liver function test and ultrasound consistent with cholecystitis. She will be admitted to telemetry given the elevated troponin. The general surgeon coal conveyor operator has already been contacted and will evaluate the patient later. We will leave her n.p.o., place her on IV fluids and IV antiemetics and analgesics. We will hold off on antibiotics at this time as she does not have a leukocytosis or white count. 2. Non-ST elevation myocardial infarction. This is likely a demand ischemia. Cardiology has already been notified. We will go ahead and continue to trend her cardiac enzymes. Place her on nitrates and get an echocardiogram to assess her wall motion. Otherwise, further recommendations are as per the Cardiology and Surgery Team. Job ID: [id number]
[2020-09-12 20:16] LABS: SARS-CoV-2 NAA Rapid Test Not Detected (NotDetected)
[2020-09-12 20:38] LABS: Troponin I 1.841 ng/mL (< 0.028)
[2020-09-12] MEDS ORDERED: Nitroglycerin 2% Ointment 1 INCH/1 GM Packet ONE (20:49)
[2020-09-12] MEDS ORDERED: Heparin 10,000 UNITS/ 10 ML VIAL SLOW IVP SCH (21:30)
[2020-09-12] MEDS ORDERED: Heparin 25,000 units/D5W 500 ML IVPB SCH (21:30)
--- NOTE | 2020-09-12 21:35 | PDOC.BPN ---
- Brief Progress Note Encounter Date: 09/12/20 I was informed about patient's troponin increasing. At presentation was 0.1 and 0.7 and now 1.81. Patient generally uncomfortable with epigastric, left chest pain. She has nitro patch in place. Blood pressure stable however she is becoming tachycardic heart rate 1 15-1 20s. Plan to start her on heparin drip as her troponins appear too high for just demand ischemia and given her chest pain. She does have a mild thrombocytopenia of 104. We will continue monitoring her. We will continue monitoring on telemetry Cardiology evaluation in a.m.
[2020-09-12] MEDS: Morphine 4 MG/ML VIAL SLOW IVP PRN (22:32)
[2020-09-12] MEDS: Famotidine/PF 20 mg/2ml Vial SLOW IVP SCH (22:32)
[2020-09-12] MEDS: Ondansetron PF 4 MG/2 ML Vial IVP PRN (22:32)
[2020-09-12 22:36] VITALS: BMI 37.8
[2020-09-12 22:42] LABS: Hemoglobin 15.6 g/dL (12.0-16.0); Platelet Count 127 thou/uL (130-400)
[2020-09-12] MEDS: Nitroglycerin 2% Ointment 1 INCH/1 GM Packet TOP SCH (23:02)
[2020-09-12 23:33] LABS: Troponin I 3.764 ng/mL (< 0.028)
[2020-09-13] MEDS: Potassium Chloride 20 MEQ/100 ML PREMIX BAG IVPB SCH ×2 (00:20→02:35)
[2020-09-13] MEDS ORDERED: Scopolamine 1.5 mg/72 hour Patch TOP SCH (01:15)
[2020-09-13] MEDS: Ondansetron PF 4 MG/2 ML Vial IVP PRN ×4 (02:34→20:45)
[2020-09-13] MEDS: Morphine 4 MG/ML VIAL SLOW IVP PRN ×3 (03:54→20:45)
[2020-09-13] MEDS ORDERED: Metoclopramide HCl 10 MG/2 ML VIAL IVP SCH (04:15)
[2020-09-13] MEDS: Nitroglycerin 2% Ointment 1 INCH/1 GM Packet TOP SCH ×3 (05:13→22:46)
[2020-09-13 08:25] LABS: #Monocytes 0.7 thou/uL (0.11-0.59); #Neutrophils 6.5 thou/uL (1.40-6.50); %Eosinophils 0.3 % (0.0-10.0); %Lymphocytes 12.2 % (21.0-51.0); %Monocytes 8.4 % (0.0-10.0); %Neutrophils 79.1 % (42.0-75.0); Hemoglobin 15.7 g/dL (12.0-16.0); Mean Corpuscular HGB CONC 33.3 g/dL (32.0-36.0); Mean Corpuscular Hemoglobin 28.5 pg (27.0-31.0); Mean Corpuscular Volume 85.6 fL (78.0-98.0); Mean Platelet Volume 6.7 fL (7.4-10.4); Platelet Count 135 thou/uL (130-400); Red Blood Cell (RBC) Count 5.48 mill/uL (4.20-5.40); White Blood Cell (WBC) Count 8.2 thou/uL (4.8-10.8)
[2020-09-13 08:49] LABS: ALT (SGPT) 54 U/L (8-55); AST (SGOT) 73 U/L (5-34); Albumin 4.5 g/dL (3.4-4.8); Alkaline Phosphatase 105 U/L (40-110); Anion Gap 19 mmol/L (10-20); BUN (Urea Nitrogen) 9 mg/dL (9.8-20.1); Calc. Creatinine Clearance 93 mL/min (70-130); Calcium 9.2 mg/dL (7.8-10.44); Carbon Dioxide 22 mmol/L (23-31); Chloride 102 mmol/L (98-107); Globulin 3.1 g/dL (2.4-3.5); Glucose 165 mg/dL (80-115); Lipase 141 U/L (8-78); Potassium 3.4 mmol/L (3.5-5.1); Protein, Total 7.6 g/dL (6.0-8.3); Sodium 140 mmol/L (136-145)
[2020-09-13] MEDS: Famotidine/PF 20 mg/2ml Vial SLOW IVP SCH ×2 (08:57→20:45)
[2020-09-13] MEDS: Morphine 2 MG/ML VIAL SLOW IVP PRN (08:58)
[2020-09-13] MEDS ORDERED: Enoxaparin Sodium 40 MG/0.4 ML SYRINGE SC SCH (09:00)
[2020-09-13] MEDS ORDERED: FLU VACC QS2020-21(65YR UP)/PF 240 MCG/0.7 ML SYRINGE IM ONE (09:00)
[2020-09-13] MEDS: Escitalopram Oxalate 20 mg Tablet PO SCH (09:41)
[2020-09-13] MEDS ORDERED: Fentanyl 100 MCG/2 ML VIAL ONE (10:22)
[2020-09-13] MEDS ORDERED: Sodium Bicarbonate 2.5 MEQ/5 ML VIAL ONE (10:22)
[2020-09-13] MEDS ORDERED: Midazolam HCl 2 mg/2 ml Vial ONE (10:22)
[2020-09-13 10:53] LABS: PTT 29.3 sec (22.9-36.1); Prothrombin Time 13.3 sec (12.0-14.7)
[2020-09-13 11:19] LABS: Troponin I 5.286 ng/mL (< 0.028)
--- NOTE | 2020-09-13 11:49 | CT ---
Percutaneous cholecystostomy placement CT-guided Conscious sedation: At least 40 minutes spent with the patient for conscious sedation. FINDINGS: After explaining the procedure and answering all questions, limited CT imaging of the upper abdomen was performed. Sterile technique, buffered local anesthesia, CT guidance, conscious sedation, and a right anterolate ral intercostal approach were used to carefully advance a 19-gauge trocar into the gallbladder lumen through an appropriate purchase of hepatic parenchyma. 0.035 Amplatz wire used to hold position. Tract dilated to 6 Gabonese. A 6 Gabonese locking loop UreSil c atheter was placed into the gallbladder lumen. Approximately 5 cc black bile was aspirated and sent to laboratory for analysis. Drain was left to gravity, immediately decompressing the gallbladder from thick black bile. The catheter was secured externally with 0 silk suture. Patient tolerated the procedure well and was returned in improved condition. IMPRESSION : Technically successful CT-guided cholecystostomy.
[2020-09-13] MEDS: cefOXitin Sodium/Dextrose,Iso 2 GM in Premix Bag 1 BAG IVPB SCH ×2 (13:38→22:46)
[2020-09-13 13:39] LABS: Critical Call Chem Troponin I RESULT DECREASING; Troponin I 4.732 ng/mL (< 0.028)
--- NOTE | 2020-09-13 13:46 | CON ---
DATE OF CONSULTATION: 09/13/2020 REASON FOR CONSULTATION: Elevated troponin. HISTORY OF PRESENT ILLNESS: Ms. Mandujano is 65 years old, whom I saw 1 year ago. She initially presented with shortness of breath. She failed to follow up for any further appointments. She recently presented with abdominal pain, chest pain, nausea, vomiting. She was diagnosed with cholecystitis. She also had uncomplicated pancreatitis on CT scan, but her lipase and amylase were negative. She states she had chest pain yesterday, but no further chest pain noted. Her main complaint is significant abdominal discomfort with minimal palpation. She has been seen and evaluated by General Surgery, who feels this is consistent with cholecystitis. PAST MEDICAL HISTORY: 1. Insomnia. 2. Hypertension. 3. Chronic bronchitis. 4. COPD. 5. Asthma. 6. Depression. 7. Lumbar myelopathy. 8. Cervical myelopathy. HOME MEDICATIONS: Include; 1. Breo Ellipta. 2. Hydrochlorothiazide. 3. Potassium. 4. Vitamin D3. 5. ProAir. 6. Bupropion. REVIEW OF SYSTEMS: A 10-point review of systems is reviewed as above, otherwise negative. ALLERGIES: GUANFACINE AND HYDROCODONE. PHYSICAL EXAMINATION: VITAL SIGNS: Blood pressure 175/83, pulse 98, temperature 98.3. GENERAL: Patient is a pleasant woman, who is in no acute distress. The patient appears their stated age. NEUROLOGIC: The patient is alert and oriented x3 with no focal neurologic deficits. HEENT: Sclerae without icterus. Mouth has moist mucous membranes with normal pallor. NECK: No JVD. Carotid upstroke brisk. No bruits bilaterally. LUNGS: Clear to auscultation with unlabored respirations. BACK: No scoliosis or kyphosis. CARDIAC: Regular rate and rhythm with normal S1 and S2. No S3 or S4 noted. No significant rubs, murmurs, thrills, or gallops noted throughout the precordium. PMI is not displaced. There is no parasternal heave. ABDOMEN: Significant pain to mild palpation noted in 3 of 4 quadrants. EXTREMITIES: 2+ femoral and 2+ dorsalis pedis pulses. No cyanosis, clubbing, or edema. SKIN: No gross abnormalities. PERTINENT LABORATORY DATA: Creatinine 0.86. Peak troponin 5.2. Echo with Doppler pending. EKG shows normal sinus rhythm, normal EKG. IMPRESSION: 1. Elevated troponin. 2. Cholecystitis. RECOMMENDATIONS: Certainly concerning that her troponin was elevated. She did have chest pain, but difficult to say whether chest pain was related to nausea, vomiting, or her underlying condition. At this point, we will continue with conservative therapy. She has been placed on heparin appropriately discussed case with Dr. Esteban Mckay. Decided to proceed with percutaneous drainage of her gallbladder to help relieve the pressure and treat her with antibiotics as we sort out her cardiac status. Her echo is pending. Job ID: [id number]
[2020-09-13] MEDS ORDERED: cefOXitin 2 GM in Sodium Chloride 0.9% 100 ML IVPB SCH (14:00)
--- NOTE | 2020-09-13 15:06 | CON ---
DATE OF CONSULTATION: 09/13/2020 CONSULTING PHYSICIAN: Mat Wynn MD REASON FOR CONSULTATION: Abdominal pain, suspected cholecystitis. HISTORY OF PRESENT ILLNESS: The patient is a 65-year-old white female. Interestingly, I had seen her in the past in 1996, although neither she nor I can remember the reason for that inpatient visit. She developed onset of symptoms yesterday morning when she had multiple episodes of vomiting and diarrhea. Following this, she felt a left chest pain and abdominal discomfort. She presented to the emergency room. She underwent evaluation with a CT scan, ultrasound, and laboratory studies. Her CT scan had demonstrated findings potentially consistent with a pancreatitis. She was noted to have gallbladder wall thickening. Gallbladder ultrasound revealed cholelithiasis with again evidence of some cholecystitis. Interestingly, her laboratory studies revealed a normal white blood cell count of 8.3 with hemoglobin of 15.4. She did have left shift. Chemistry profile revealed normal liver function tests and normal lipase level. Her troponin was elevated on her initial series at 0.1. I was contacted at that point for recommendations. I was beginning a lengthy surgery and therefore recommendations were made over the phone. I recommended checking her serial troponins, if they were elevated, then she needed to be managed medically. Her troponin went up to initially 0.8 at 5 o'clock and she was admitted to the medical service. Cardiology was consulted and she was seen by them this morning. Her troponin level continue to elevated up to a high of 5.2 at 10:[address] Beasley saw from a cardiology standpoint and he and I spoke this morning regarding options for continued treatment in light of the significant troponin elevation. It was recognized she had substantial abdominal discomfort. The patient tells me that she did have diarrhea yesterday. She complains of abdominal pain diffusely. PAST MEDICAL HISTORY: 1. Hypertension. 2. Anxiety. 3. COPD (secondhand smoke from her ). 4. Degenerative joint disease. PAST SURGICAL HISTORY: Lumbar back surgery in July of this last year and appendectomy in the past. MEDICATIONS: Her current medications are uncertain. She has been started on escitalopram and metoprolol. She had been on a heparin drip overnight. ALLERGIES: GUAIFENESIN AND HYDROCODONE. PERSONAL AND SOCIAL HISTORY: She had never smoked and does not drink alcohol. She is . She has one daughter. She lives in [place]. Her primary care physician is WENDY Bowers. REVIEW OF SYSTEMS: Otherwise, unremarkable. FAMILY HISTORY: Noncontributory. PHYSICAL EXAMINATION: VITAL SIGNS: Her temperature is 98.3, pulse is 98, and blood pressure 175/83. LUNGS: Clear to auscultation. CARDIAC: Regular rate and rhythm. ABDOMEN: Moderately obese. She has diffuse tenderness, but this appears to primarily be within the right upper quadrant. She does complain of bilateral lower quadrant discomfort. There is no tenderness at all in the left upper quadrant. Bowel sounds are present and essentially normoactive. EXTREMITIES: Unremarkable. LABORATORY DATA: I repeated her laboratory studies this morning and her CBC shows a continued white blood cell count of 8.2. Her platelet count is 135. Her electrolytes are minimally abnormal. Her liver function tests were still essentially normal. Her lipase is elevated somewhat to 141. Her troponin has recently dropped down to 4.7. ASSESSMENT AND PLAN: The patient with abdominal pain, which is somewhat atypical for cholecystitis and that she does complain of pain with palpation in the lower abdomen. I suspect, however, that this is cholecystitis associated pain, but she does perhaps have a component of pancreatitis that is a cause of her lower abdominal discomfort. I think that gallbladder intervention is appropriate. However, in light of her markedly elevation of troponin and uncertain cardiac status, surgery is best avoided at this time. I have therefore recommended a CT-guided cholecystostomy tube to decompress the gallbladder. Antibiotics will be continued nakul-procedurally. Her heparin will have to be discontinued for the procedure and may be continued per Medical/Cardiology Services desires. I have spoken with Radiology (Dr. Herring) regarding this and he will arrange for the cholecystostomy tube placement. Job ID: [id number]
[2020-09-13] MEDS: Dextrose 5 % And 0.9 % NaCl 1,000 ML IV SCH (17:40)
--- NOTE | 2020-09-13 18:18 | PDOC.HOSPP ---
- Subjective Encounter Date: 09/13/20 Encounter Time: 15:00 Subjective: Patient up in bed complains of some chest pain. However her pain is reproducible on palpation she complains also of abdominal pain - Objective Vital Signs & Weight: Vital Signs (12 hours) Temp Pulse Resp BP Pulse Ox 09/13/20 16:00 98.9 F 92 19 157/76 H 97 09/13/20 11:55 98.5 F 97 17 151/79 H 98 09/13/20 07:38 98.3 F 98 17 175/83 H 99 Weight Weight 200 lb Result Diagrams: 09/13/20 08:06 09/13/20 08:06 Additional Labs: Accuchecks 09/13/20 09/13/20 16:39 05:25 POC Glucose 115 H 171 H Hospitalist ROS - Review of Systems Cardiovascular: reports: chest pain Gastrointestinal: reports: abdominal pain Genitourinary: denies: dysuria, frequency, incontinence, hematuria, retention, other Musculoskeletal: denies: neck pain, shoulder pain, arm pain, back pain, hand pain, leg pain, foot pain, other - Medication Medications: Active Medications Generic Name Dose Route Start Last Admin Trade Name Freq PRN Reason Stop Dose Admin Escitalopram Oxalate 20 mg 09/13/20 09:00 09/13/20 09:41 Escitalopram Oxalate 20 Mg Tablet PO 20 mg DAILY BITA Administration Famotidine 20 mg 09/12/20 21:00 09/13/20 08:57 Famotidine/Pf 20 Mg/2ml Vial SLOW IVP 20 mg Q12HR BITA Administration Cefoxitin Sodium/Dextrose 2 gm 50 mls @ 100 mls/hr 09/13/20 14:00 09/13/20 13:38 / Device IVPB 50 mls Q8HR BITA Administration Dextrose/Sodium Chloride 1,000 mls @ 50 mls/hr 09/13/20 17:30 09/13/20 17:40 D5 0.9% Ns IV 1,000 mls .Q20H BITA Administration Morphine Sulfate 2 mg 09/12/20 19:13 09/13/20 08:58 Morphine 2 Mg/Ml Vial SLOW IVP 2 mg Q4H PRN Administration Moderate Pain (4-6) Morphine Sulfate 4 mg 09/12/20 19:13 09/13/20 13:36 Morphine 4 Mg/Ml Vial SLOW IVP 4 mg Q4H PRN Administration Severe Pain (7-10) Nitroglycerin 1 inch 09/12/20 22:00 09/13/20 13:38 Nitroglycerin 2% Ointment 1 Inch/1 Gm Packet TOP 1 inch Q8HR BITA Administration Ondansetron HCl 4 mg 09/12/20 19:13 09/13/20 13:38 Ondansetron Pf 4 Mg/2 Ml Vial IVP 4 mg Q6H PRN Administration Nausea/Vomiting Sodium Chloride 10 ml 09/13/20 09:00 09/13/20 08:58 Flush - Normal Saline 10 Ml Syringe IVF 10 ml Q12HR BITA Administration - Exam Heart: negative: RRR, no murmur, no gallops, no rubs, normal peripheral pulses, irregular, diminshed peripheral pulses, murmur present, II/IV, III/IV Respiratory: negative: CTAB, no wheezes, no rales, no ronchi, normal chest expansion, no tachypnea, normal percussion, rales, rhonchi, tachypneic, wheezes Gastrointestinal: soft Gastrointestinal - other findings: Drain noted. Hosp A/P (1) NSTEMI (non-ST elevated myocardial infarction) Code(s): I21.4 - NON-ST ELEVATION (NSTEMI) MYOCARDIAL INFARCTION Status: Acute (2) Abdominal pain Code(s): R10.9 - UNSPECIFIED ABDOMINAL PAIN Status: Acute (3) HTN (hypertension) Code(s): I10 - ESSENTIAL (PRIMARY) HYPERTENSION Status: Chronic Qualifiers: Hypertension type: essential hypertension Qualified Code(s): I10 - Essential (primary) hypertension (4) Acute pancreatitis Code(s): K85.90 - ACUTE PANCREATITIS WITHOUT NECROSIS OR INFECTION, UNSP Status: Acute (5) Cholecystitis Code(s): K81.9 - CHOLECYSTITIS, UNSPECIFIED Status: Acute - Plan Patient's pancreatitis most likely associated with cholecystitis. Patient underwent a CT-guided drainage of the gallbladder. Significant elevation of tro ponins we will start patient on Lovenox aspirin and statin. EKG indicates sinus bradycardia. We will check an EKG. We will continue antibiotics per surgical recommendations
[2020-09-13 18:40] LABS: Critical Call Chem Troponin I RESULT DECREASING; Troponin I 4.479 ng/mL (< 0.028)
[2020-09-13] MEDS: Atorvastatin Calcium 20 MG TAB PO SCH (20:45)
[2020-09-13] MEDS: Acetaminophen 325 MG TAB PO PRN (20:46)
[2020-09-13] MEDS: Enoxaparin Sodium 100 MG/ML SYRINGE SC SCH (20:46)
[2020-09-14] MEDS: Morphine 4 MG/ML VIAL SLOW IVP PRN (01:53)
[2020-09-14] MEDS: Ondansetron PF 4 MG/2 ML Vial IVP PRN (01:53)
[2020-09-14 04:32] LABS: #Basophils 0.1 thou/uL (0.0-0.2); #Lymphocytes 1.3 thou/uL (1.20-3.40); #Monocytes 0.8 thou/uL (0.11-0.59); #Neutrophils 5.4 thou/uL (1.40-6.50); %Basophils 0.7 % (0.0-1.0); %Eosinophils 0.2 % (0.0-10.0); %Lymphocytes 17.7 % (21.0-51.0); %Monocytes 10.2 % (0.0-10.0); %Neutrophils 71.2 % (42.0-75.0); Hemoglobin 14.6 g/dL (12.0-16.0); Mean Corpuscular HGB CONC 32.9 g/dL (32.0-36.0); Mean Corpuscular Hemoglobin 28.1 pg (27.0-31.0); Mean Corpuscular Volume 85.5 fL (78.0-98.0); Mean Platelet Volume 6.5 fL (7.4-10.4); Platelet Count 139 thou/uL (130-400); RBC Distribution Width 13.2 % (11.5-14.5); White Blood Cell (WBC) Count 7.6 thou/uL (4.8-10.8)
[2020-09-14 04:55] LABS: ALT (SGPT) 49 U/L (8-55); AST (SGOT) 71 U/L (5-34); Albumin 4.2 g/dL (3.4-4.8); Alkaline Phosphatase 95 U/L (40-110); Anion Gap 13 mmol/L (10-20); BUN (Urea Nitrogen) 10 mg/dL (9.8-20.1); Bilirubin, Total 0.9 mg/dL (0.2-1.2); Calc. Creatinine Clearance 94 mL/min (70-130); Calcium 9.3 mg/dL (7.8-10.44); Carbon Dioxide 26 mmol/L (23-31); Chloride 104 mmol/L (98-107); Glucose 136 mg/dL (80-115); Lipase 77 U/L (8-78); Potassium 3.2 mmol/L (3.5-5.1); Protein, Total 7.2 g/dL (6.0-8.3); Sodium 140 mmol/L (136-145)
[2020-09-14] MEDS: cefOXitin Sodium/Dextrose,Iso 2 GM in Premix Bag 1 BAG IVPB SCH ×3 (05:45→21:05)
[2020-09-14] MEDS: Nitroglycerin 2% Ointment 1 INCH/1 GM Packet TOP SCH ×3 (05:45→21:05)
[2020-09-14] MEDS: Aspirin 81 mg Enteric Coated Tablet PO SCH (08:33)
[2020-09-14] MEDS: Escitalopram Oxalate 20 mg Tablet PO SCH (08:33)
[2020-09-14] MEDS: Famotidine/PF 20 mg/2ml Vial SLOW IVP SCH ×2 (08:33→21:05)
[2020-09-14] MEDS: Acetaminophen 325 MG TAB PO PRN (08:33)
[2020-09-14] MEDS: Enoxaparin Sodium 100 MG/ML SYRINGE SC SCH (08:34)
[2020-09-14] MEDS ORDERED: Sodium Chloride 0.9% 1,000 ML IV SCH (10:15)
[2020-09-14] MEDS ORDERED: Communication Order-Pharmacy FS SCH (10:15)
--- NOTE | 2020-09-14 10:47 | CT ---
Percutaneous cholecystostomy placement CT-guided Conscious sedation: At least 40 minutes spent with the patient for conscious sedation. FINDINGS: After explaining the procedure and answering all questions, limited CT imaging of the upper abdomen was performed. Sterile technique, buffered local anesthesia, CT guidance, conscious sedation, and a right anterolate ral intercostal approach were used to carefully advance a 19-gauge trocar into the gallbladder lumen through an appropriate purchase of hepatic parenchyma. 0.035 Amplatz wire used to hold position. Tract dilated to 6 Nauruan. A 6 Nauruan locking loop UreSil c atheter was placed into the gallbladder lumen. Approximately 5 cc black bile was aspirated and sent to laboratory for analysis. Drain was left to gravity, immediately decompressing the gallbladder from thick black bile. The catheter was secured externally with 0 silk suture. Patient tolerated the procedure well and was returned in improved condition. IMPRESSION : Technically successful CT-guided cholecystostomy. Transcribed Date/Time: 09/14/2020 10:46 AM
[2020-09-14] MEDS ORDERED: Midazolam HCl 2 mg/2 ml Vial ONE (11:58)
[2020-09-14] MEDS ORDERED: Fentanyl 100 MCG/2 ML VIAL ONE (11:59)
--- NOTE | 2020-09-14 15:34 | PRG ---
DATE OF SERVICE: 09/14/2020 SUBJECTIVE: Ms. Mandujano had a cholecystostomy tube placed by Radiology yesterday. Cultures from this were sent and preliminarily show no organisms. Patient tells me that she feels substantially better since this was placed. There was about 250 mL of drainage yesterday. This appears to be very dark-colored bile. Her troponin level has remained elevated and was 4.48 yesterday evening. She denies chest pain currently. OBJECTIVE: VITAL SIGNS: She is afebrile. Pulse is in the 80s and regular. Blood pressure is elevated and 177/96. LUNGS: Clear to auscultation. ABDOMEN: Soft. Bowel sounds are present and normoactive. There is a dressing in the right upper quadrant associated with her cholecystostomy tube. As mentioned, the bag is filled with dark-colored bile. LABORATORY DATA: Her metabolic panel reveals that she is hypokalemic, but electrolytes otherwise normal. Liver function tests are essentially normal. Lipase back down to normal at 77. CBC shows a normal white blood cell count. Her left shift is resolving and essentially normal. Hemoglobin stable at 14.6. ASSESSMENT AND PLAN: The patient is stable following cholecystostomy tube placement. This was placed secondary to concern regarding possible non-ST elevation myocardial infarction. Dr. Beasley plans on cardiac catheterization today, which I told him should be fine. I had a long conversation with the patient and her daughter. I would recommend leaving the drain in place for 10 to 14 days. If all remains well with this, then I would likely remove the drain with plans for an interval cholecystectomy in about 8 weeks. Job ID: [id number]
[2020-09-14] MEDS: Dextrose 5 % And 0.9 % NaCl 1,000 ML IV SCH (15:57)
[2020-09-14] MEDS ORDERED: hydrALAZINE 20 MG/ML VIAL SLOW IVP PRN (18:02)
[2020-09-14] MEDS: Atorvastatin Calcium 20 MG TAB PO SCH (21:05)
[2020-09-14] MEDS: Morphine 2 MG/ML VIAL SLOW IVP PRN (21:13)
[2020-09-14 21:37] LABS: Hemoglobin 14.5 g/dL (12.0-16.0); Platelet Count 140 thou/uL (130-400)
[2020-09-15] MEDS: cefOXitin Sodium/Dextrose,Iso 2 GM in Premix Bag 1 BAG IVPB SCH ×2 (06:10→14:19)
[2020-09-15] MEDS: Nitroglycerin 2% Ointment 1 INCH/1 GM Packet TOP SCH ×2 (06:10→14:19)
[2020-09-15] MEDS: Morphine 2 MG/ML VIAL SLOW IVP PRN (06:10)
--- NOTE | 2020-09-15 07:20 | PDOC.GSPN ---
Surgery Progress Note: Subj - Subjective Narrative: 65-year-old female s/p cholecystostomy tube placement for cholecystitis. No overnight events. She reports epigastric pain, described as a "squeezing" or "tightness" and rated 5/10. Denies radiation to the back. Her tube drained about 50 mL of dark bilious fluid since placement. She reports associated nausea, hiccups and appetite change. She has 1 BM yesterday which was formed with small amount of blood. Patient reports very little ambulation, only to use the bath room. She denies fever, chills, night sweats, diaphoresis, lightheadedness, chest pain, SOB, palpitations, bruising, constipation, dysuria or hematuria or skin changes. Surgery Progress Note: Obj - Vital signs Vital signs: Vital Signs - Most Recent Temp Pulse Resp BP Pulse Ox 99.1 F 80 16 165/86 H 95 09/15/20 04:00 09/15/20 04:00 09/15/20 04:00 09/15/20 04:00 09/15/20 04:00 - Physical Exam General: no distress, well developed, well nourished, moderate pain (5/10, epigastric to LUQ squeezing pain) Cardiovascular: regular rate and rhythm, no murmur Respiratory: clear to auscultation, normal respiratory effort, breath sounds present. negative: wheezing Abdomen: soft, nondistended, decreased bowel sounds, tender, other (Positive Joya's sign). negative: rigid Integumentary: no abnormal pigmentation, no rash Wound: dressing clean,dry,intact, drainage (50 mL dark, bilious fluid), ostomy/colostomy (Cholecystostomy) Surgery Progress Note: Results - Labs Result Diagrams: 09/14/20 21:07 09/14/20 04:14 Lab results: Laboratory Results - last 12 hr 09/14/20 21:07 Hgb 14.5 Hct 43.3 Plt Count 140 No indication of bleeding. Surgery Progress Note: A/P - Plan Plan: 65-year-old female s/p percutaneous cholecystostomy tube placement for acute cholecystitis. She is stable today, being managed with temporizing gallbladder drainage d/t possibility of NSTEMI. We may proceed to interval laparoscopic cholecystectomy after cardiac assessment. 1. Cholecystitis: a. remove drain in 14 days b. continue with plan for interval lap cholecystectomy in 8 weeks 2. Pain: improving and adequately controlled 3. Low grade fever: 99.9 F, likely secondary to cholecystitis a. continue cefoxitine b. fluid cultures pending 4. Diet: tolerating 5. Prophylaxis: a. encouraged ambulation due to recent back surgery
[2020-09-15] MEDS: Aspirin 81 mg Enteric Coated Tablet PO SCH (08:57)
[2020-09-15] MEDS: Escitalopram Oxalate 20 mg Tablet PO SCH (08:57)
[2020-09-15] MEDS: Famotidine/PF 20 mg/2ml Vial SLOW IVP SCH (08:57)
[2020-09-15] MEDS ORDERED: Losartan 25 MG TAB PO SCH (09:00)
[2020-09-15] MEDS ORDERED: Electrolyte Replacement Protocol 1 EACH FS SCH (09:00)
[2020-09-15] MEDS ORDERED: Aspirin 325 MG TAB ONE (09:05)
--- NOTE | 2020-09-15 09:09 | PRG ---
DATE OF SERVICE: 09/15/2020 SUBJECTIVE: Ms. Mandujano is status post cholecystostomy tube placement for biliary decompression. She notes her abdominal discomfort remains improved from prior to her presentation. She underwent cardiac catheterization yesterday per Dr. Beasley. She was found to have no significant coronary artery disease and preserved cardiac ejection fraction. No cardiac intervention was necessary. I have spoken with Dr. Beasley regarding these findings and his recommendations. OBJECTIVE: VITAL SIGNS: She is afebrile. Vital signs are within normal limits. LUNGS: Clear. ABDOMEN: Benign. She has appropriate tenderness around the catheter insertion site. The remainder of the abdomen is essentially benign with normoactive bowel sounds. She tells me she had a bowel movement yesterday. ASSESSMENT AND PLAN: The patient who has a cholecystostomy tube and who presented with elevated troponins. The exact significance of her marked troponin elevation in relation to her lack of coronary artery disease is of uncertain significance. However, to err on the side of caution, I would not recommend proceeding with cholecystectomy until she is about 8 weeks out from this event. She is safe to be discharged home today. She will need to be instructed in drain care and maintenance. I will see her back in my office in 3 days to make sure she is doing okay with that drain and then plan on removing it about a week later. At that point, I will arrange followup to proceed with an interval laparoscopic cholecystectomy. I discussed all this in detail with the patient. She understands and again, she is stable for discharge from both Cardiology and Surgery standpoint today. Job ID: [id number]
[2020-09-15] MEDS ORDERED: Electrolyte Replacement Protocol FS PRN (09:15)
--- NOTE | 2020-09-15 13:53 | PRG ---
DATE OF SERVICE: 09/15/2020 SUBJECTIVE: Ms. Mandujano is doing well. No current complaints. OBJECTIVE: VITAL SIGNS: Blood pressure 136/72, pulse 69, temperature 98.1. LUNGS: Clear to auscultation. HEART: Regular rate and rhythm. ABDOMEN: Soft, nontender, nondistended. EXTREMITIES: No edema. IMPRESSION: 1. Elevated troponin. 2. Cholecystitis. RECOMMENDATIONS: Ms. Mandujano's recent echo suggested normal LVEF. She had no significant cord disease. This likely was secondary to demand ischemia. There is no concrete evidence on when to proceed with noncardiac surgery. After acute NH, which is not this current situation, recommendations to wait 8 weeks, although the guidelines are loose. Discussed the case with Dr. Esteban Mckay. We agreed to proceed with surgery in 6 to 8 weeks. Would recommend statin, beta tony, in addition to aspirin and ANA M inhibitor therapy. Okay from my standpoint to discharge home. Job ID: [id number]
--- NOTE | 2020-09-15 14:11 | PDOC.HOSPP ---
- Subjective Encounter Date: 09/14/20 Encounter Time: 13:00 Subjective: pt up in bed no complains. - Objective Vital Signs & Weight: Vital Signs (12 hours) Temp Pulse Resp BP Pulse Ox 09/15/20 11:32 98.1 F 69 15 136/72 100 09/15/20 08:59 92 L 09/15/20 08:00 97.5 F L 73 16 156/82 H 92 L 09/15/20 04:00 99.1 F 80 16 165/86 H 95 Weight Weight 184 lb 6.4 oz I&O: 09/14/20 09/15/20 09/16/20 06:59 06:59 06:59 Intake Total 580 240 Output Total 250 50 Balance -250 530 240 Result Diagrams: 09/14/20 21:07 09/14/20 04:14 Hospitalist ROS - Review of Systems Respiratory: denies: cough, dry, shortness of breath, hemoptysis, SOB with excertion, pleuritic pain, sputum, wheezing, other Cardiovascular: denies: chest pain, palpitations, orthopnea, paroxysmal noc. dyspnea, edema, light headedness, other Gastrointestinal: denies: nausea, vomiting, abdominal pain, diarrhea, constipation, melena, hematochezia, other - Medication Medications: Active Medications Generic Name Dose Route Start Last Admin Trade Name Shaheedq PRN Reason Stop Dose Admin Acetaminophen 650 mg 09/12/20 19:13 09/14/20 08:33 Acetaminophen 325 Mg Tab PO 650 mg Q4H PRN Administration Headache/Fever/Mild Pain (1-3) Aspirin 81 mg 09/14/20 09:00 09/15/20 08:57 Aspirin 81 Mg Enteric Coated Tablet PO 81 mg DAILY BITA Administration Atorvastatin Calcium 20 mg 09/13/20 21:00 09/14/20 21:05 Atorvastatin Calcium 20 Mg Tab PO 20 mg HS BITA Administration Escitalopram Oxalate 20 mg 09/13/20 09:00 09/15/20 08:57 Escitalopram Oxalate 20 Mg Tablet PO 20 mg DAILY BITA Administration Famotidine 20 mg 09/12/20 21:00 09/15/20 08:57 Famotidine/Pf 20 Mg/2ml Vial SLOW IVP 20 mg Q12HR BITA Administration Cefoxitin Sodium/Dextrose 2 gm 50 mls @ 100 mls/hr 09/13/20 14:00 09/15/20 0 6:10 / Device IVPB 50 mls Q8HR BITA Administration Losartan Potassium 50 mg 09/15/20 09:00 09/15/20 09:26 Losartan 25 Mg Tab PO 50 mg DAILY BITA Administration Metoprolol Succinate 50 mg 09/15/20 09:00 09/15/20 09:06 Metoprolol Succinate Xl 25 Mg Tab PO 50 mg DAILY BITA Administration Morphine Sulfate 2 mg 09/12/20 19:13 09/15/20 06:10 Morphine 2 Mg/Ml Vial SLOW IVP 2 mg Q4H PRN Administration Moderate Pain (4-6) Morphine Sulfate 4 mg 09/12/20 19:13 09/14/20 01:53 Morphine 4 Mg/Ml Vial SLOW IVP 4 mg Q4H PRN Administration Severe Pain (7-10) Nitroglycerin 1 inch 09/12/20 22:00 09/15/20 06:10 Nitroglycerin 2% Ointment 1 Inch/1 Gm Packet TOP 1 inch Q8HR BITA Administration Ondansetron HCl 4 mg 09/12/20 19:13 09/14/20 01:53 Ondansetron Pf 4 Mg/2 Ml Vial IVP 4 mg Q6H PRN Administration Nausea/Vomiting Sodium Chloride 10 ml 09/13/20 09:00 09/15/20 09:26 Flush - Normal Saline 10 Ml Syringe IVF 10 ml Q12HR BITA Administration - Exam Neck: negative: supple, symmetric, no JVD, no thyromegaly, no lymphadenopathy, no carotid bruit, JVD Heart: negative: RRR, no murmur, no gallops, no rubs, normal peripheral pulses, irregular, diminshed peripheral pulses, murmur present, II/IV, III/IV Respiratory: negative: CTAB, no wheezes, no rales, no ronchi, normal chest expansion, no tachypnea, normal percussion, rales, rhonchi, tachypneic, wheezes Gastrointestinal: soft, normal bowel sounds Gastrointestinal - other findings: drain noted to right upper quadrant Hosp A/P (1) NSTEMI (non-ST elevated myocardial infarction) Code(s): I21.4 - NON-ST ELEVATION (NSTEMI) MYOCARDIAL INFARCTION Status: Acute (2) Abdominal pain Code(s): R10.9 - UNSPECIFIED ABDOMINAL PAIN Status: Acute (3) HTN (hypertension) Code(s): I10 - ESSENTIAL (PRIMARY) HYPERTENSION Status: Chronic Qualifiers: Hypertension type: essential hypertension Qualified Code(s): I10 - Essent ial (primary) hypertension (4) Acute pancreatitis Code(s): K85.90 - ACUTE PANCREATITIS WITHOUT NECROSIS OR INFECTION, UNSP Status: Acute (5) Cholecystitis Code(s): K81.9 - CHOLECYSTITIS, UNSPECIFIED Status: Acute - Plan Patient's pancreatitis most likely associated with cholecystitis. Patient underwent a CT-guided drainage of the gallbladder. Significant elevation of troponins we will start patient on Lovenox aspirin and statin. EKG indicates sinus bradycardia. We will check an EKG. We will continue antibiotics per surgical recommendations 09/14 spoke with cardiology pt underwent cath. No intervention. possible home in a if ok with cardiology and surgery.
[2020-09-15 15:58] VITALS: BP 115/72; TEMP 97.7
--- NOTE | 2020-09-15 16:45 | PDOC.DS.DS ---
Provider - Provider Date of Admission: 09/12/20 19:13 Date of Discharge: 09/15/20 Admitting Provider: Mat Wynn MD Primary Care Physician: Leida Gamez APRN Course - Hospital Course Hospital Course: 1. Abdominal pain #2 NSTEMI type II demand ischemia #3 uncomplicated pancreatitis most likely secondary to gallbladder #4 cholecystitis status post cholecystostomy tube Patient is a 65-year-old female who initially presented to the hospital with co mplaints of abdominal pain epigastric pain. Patient was noted to have elevated troponins. She was seen by surgery and cardiology. She underwent a cardiac cath no intervention. She had abdominal ultrasound which indicated cholelithiasis with tiny amount of pericholecystic fluid. CT also indicated uncomplicated acute pancreatitis. Patient underwent a CT-guided cholecystectomy tube. Patient was then discharged home she will follow up with surgery in 3 days. I did speak with surgery for possible antibiotics they recommended no antibiotics. Resuscitation Status: 09/12/20 18:59 Resuscitation Status Routine Resuscitation Status: FULL: Full Resuscitation - Labs Lab Results: 09/14/20 21:07 09/14/20 04:14 Abnormal Lab Results - Last 48 hrs 09/13/20 17:47: Troponin I 4.479 H* 09/14/20 04:14: Potassium 3.2 L, AST 71 H 09/14/20 04:14: MPV 6.5 L, Lymphocytes % 17.7 L, Monocytes % 10.2 H, Monocytes # 0.8 H Microbiology - Entire Visit 09/13/20 11:20 Gallbladder - Aspirate Bacterial Culture - Preliminary 09/12/20 15:07 Stool - Pending C. difficile GDH Antigen & Toxins - Final - Physical Exam Vitals: Vital Signs (12 hours) Temp Pulse Resp BP Pulse Ox 09/15/20 15:55 97.7 F 94 16 115/72 100 09/15/20 11:32 98.1 F 69 15 136/72 100 09/15/20 08:59 92 L 09/15/20 08:00 97.5 F L 73 16 156/82 H 92 L Weight Weight 184 lb 6.4 oz Physical Exam: The patient was seen and examined on the day of discharge. Problem - Problem (1) NSTEMI (non-ST elevated myocardial infarction) Code(s): I21.4 - NON-ST ELEVATION (NSTEMI) MYOCARDIAL INFARCTION Status: Acute (2) Abdominal pain Code(s): R10.9 - UNSPECIFIED ABDOMINAL PAIN Status: Acute (3) HTN (hypertension) Code(s): I10 - ESSENTIAL (PRIMARY) HYPERTENSION Status: Chronic Qualifiers: Hypertension type: essential hypertension Qualified Code(s): I10 - Essential (primary) hypertension (4) Acute pancreatitis Code(s): K85.90 - ACUTE PANCREATITIS WITHOUT NECROSIS OR INFECTION, UNSP Status: Acute (5) Cholecystitis Code(s): K81.9 - CHOLECYSTITIS, UNSPECIFIED Status: Acute Plan - Discharge Medications Prescriptions: Losartan [Cozaar] 50 mg PO DAILY #30 tab Losartan [Cozaar] 25 mg PO DAILY #50 tab Metoprolol Succinate [Toprol XL] 50 mg PO DAILY #30 tab Metoprolol Succinate [Toprol XL] 50 mg PO DAILY #30 tab Home Medications: Medication Instructions Recorded Confirmed Type Cetirizine HCl [All Day Allergy] 10 mg PO DAILY 06/21/20 09/12/20 History Escitalopram Oxalate [Lexapro] 20 mg PO DAILY 06/21/20 09/12/20 History Fluticasone Propionate [Flonase 1 spray EA NARE DAILY 06/21/20 09/12/20 History Nasal [place]] Hydrochlorothiazide 25 mg PO DAILY 06/21/20 09/12/20 History Montelukast Sodium [Singulair] 10 mg PO HS 06/21/20 09/12/20 History tiZANidine HCl [Tizanidine HCl] 4 mg PO TID PRN 06/21/20 09/12/20 History traMADol HCl [Tramadol HCl] 50 mg PO Q6HR PRN 06/21/20 09/12/20 History Albuterol Sulfate [Albuterol 2.5 mg NEB ACHS PRN 07/14/20 09/12/20 History Sulfate Neb] Aspirin [Ecotrin Low Strength] 81 mg PO DAILY tab 09/15/20 Rx Losartan [Cozaar] 25 mg PO DAILY #50 tab 09/15/20 Rx Losartan [Cozaar] 50 mg PO DAILY #30 tab 09/15/20 Rx Metoprolol Succinate [Toprol XL] 50 mg PO DAILY #30 tab 09/15/20 Rx Metoprolol Succinate [Toprol XL] 50 mg PO DAILY #30 tab 09/15/20 Rx Allergies: guaifenesin [From Mucinex] Allergy (Verified 09/12/20 23:03) hydrocodone [From Vicodin] Allergy (Verified 07/14/20 15:32) - Discharge Instructions Discharge Instructions:: follow up in 3 days with surgery FOLLOW UP WITH DR. MCKAY ON 09/18/20 - CALL FOR APPOINTMENT Do not shower until you are seen by Dr. Mckay. Please empty your drain daily and record the output. Please bring this record with you to your appointment on Friday. You can resume a regular diet at home. Activity:: Activity as Tolerated Nourishment:: Heart Healthy Diet Additional Dietary Instructions:: low fat - Follow up Plan Referrals: [facility]) [Outside] - 1 Day (Will follow up with you after discharge. Please call them to let them know you have been discharged from the hospital.) Leida Gamez APRN [Primary Care Provider] - 09/22/20 10:50 am George Beasley MD [Active] - 2-3 Weeks (Please call to make a follow up appt w/your refund clerk.) Esteban Mckay MD [Active] - 3 Days (FOLLOW UP WITH DR. MCKAY ON 09/18/20 CALL OFFICE FOR APPOINTMENT ) Disposition: HOME Quality - Care Measures CORE MEASURES:: N/A
== END 2020-09-15 15:40 | disposition home health service (06) | DRG 444 ==
LOC: ERS 13:26 → 2NO 18:29 → OBSVTOIN 19:13
PROVIDERS: ADMIT Internal Medicine; ATTEND Internal Medicine
PROC: 0F9430Z Drainage of Gallbladder with Drainage Device, Percutaneous Approach (ICD-10-PCS; principal; 2020-09-11)
PROC: 4A023N7 Measurement of Cardiac Sampling and Pressure, Left Heart, Percutaneous Approach (ICD-10-PCS; 2020-09-14)
PROC: B2111ZZ Fluoroscopy of Multiple Coronary Arteries using Low Osmolar Contrast (ICD-10-PCS; 2020-09-14)
PROC: B2151ZZ Fluoroscopy of Left Heart using Low Osmolar Contrast (ICD-10-PCS; 2020-09-14)
DX: K80.00 Calculus of gallbladder with acute cholecystitis without obstruction (principal); K85.10 Biliary acute pancreatitis without necrosis or infection; I21.A1 Myocardial infarction type 2; Z20.822 Contact with and (suspected) exposure to COVID-19; I10 Essential (primary) hypertension; J44.9 Chronic obstructive pulmonary disease, unspecified; F41.9 Anxiety disorder, unspecified; G47.00 Insomnia, unspecified; Z88.8 Allergy status to other drugs, medicaments and biological substances; Z90.49 Acquired absence of other specified parts of digestive tract; Z79.899 Other long term (current) drug therapy; Z79.51 Long term (current) use of inhaled steroids
CPT/HCPCS: 0240U; 36415; 36416; 47010; 71045; 74177; 76705; 76942; 77002; 80053; 81003; 81015; 82150; 82553; 83690; 83735; 84484; 85014; 85018; 85025; 85049; 85610; 85730; 86850; 86900; 86901; 87070; 87205; 87324; 87449; 93005; 93010; 93306; 93458; 94760; J0360; J0694; J1630; J1644; J1650; J2250; J2270; J2405; J2765; J3010; J3480; Q9967; S0028

== ENCOUNTER 2020-09-16 01:33 | Inpatient (IN) | payer MEDICARE, OTHER ==
[2020-09-16] MEDS ORDERED: Morphine 4 MG/ML VIAL ONE (02:50)
[2020-09-16] MEDS ORDERED: Pantoprazole 40 MG VIAL ONE (02:50)
[2020-09-16] MEDS ORDERED: Promethazine HCl 25 MG/ML VIAL ONE (02:50)
[2020-09-16 03:14] LABS: #Basophils 0.1 thou/uL (0.0-0.2); #Eosinphils 0.1 thou/uL (0.0-0.7); #Lymphocytes 1.3 thou/uL (1.20-3.40); #Monocytes 0.7 thou/uL (0.11-0.59); #Neutrophils 5.2 thou/uL (1.40-6.50); %Basophils 0.8 % (0.0-1.0); %Eosinophils 1.1 % (0.0-10.0); %Lymphocytes 17.6 % (21.0-51.0); %Monocytes 9.9 % (0.0-10.0); %Neutrophils 70.6 % (42.0-75.0); Hemoglobin 14.1 g/dL (12.0-16.0); Mean Corpuscular HGB CONC 34.6 g/dL (32.0-36.0); Mean Corpuscular Hemoglobin 29.1 pg (27.0-31.0); Mean Corpuscular Volume 84.1 fL (78.0-98.0); Mean Platelet Volume 6.7 fL (7.4-10.4); Platelet Count 138 thou/uL (130-400); RBC Distribution Width 12.9 % (11.5-14.5); Red Blood Cell (RBC) Count 4.84 mill/uL (4.20-5.40); White Blood Cell (WBC) Count 7.3 thou/uL (4.8-10.8)
[2020-09-16 03:21] LABS: INR-International Normal Ratio 1.1; PTT 26.7 sec (22.9-36.1); Prothrombin Time 13.9 sec (12.0-14.7)
[2020-09-16 03:37] LABS: ALT (SGPT) 137 U/L (8-55); AST (SGOT) 446 U/L (5-34); Albumin 4.1 g/dL (3.4-4.8); Alkaline Phosphatase 200 U/L (40-110); Anion Gap 14 mmol/L (10-20); BUN (Urea Nitrogen) 12 mg/dL (9.8-20.1); Bilirubin, Total 2.4 mg/dL (0.2-1.2); CK (CPK) 264 U/L (29-168); Calc. Creatinine Clearance 0 mL/min (70-130); Calcium 8.9 mg/dL (7.8-10.44); Carbon Dioxide 24 mmol/L (23-31); Chloride 101 mmol/L (98-107); Globulin 2.5 g/dL (2.4-3.5); Glucose 121 mg/dL (80-115); Lipase 70 U/L (8-78); Protein, Total 6.6 g/dL (6.0-8.3); Sodium 136 mmol/L (136-145)
[2020-09-16 03:42] LABS: Potassium 2.9 mmol/L (3.5-5.1)
[2020-09-16 04:08] LABS: CKMB 2.4 ng/mL (0-6.6)
[2020-09-16] MEDS ORDERED: Potassium Chloride 20 MEQ in Premix Bag 1 BAG IVPB SCH (04:15)
[2020-09-16] MEDS ORDERED: Lactated Ringer's 1,000 ML IV SCH (05:30)
[2020-09-16] MEDS ORDERED: Electrolyte Replacement Protocol 1 EACH FS SCH (05:30)
[2020-09-16] MEDS ORDERED: hydrALAZINE 20 MG/ML VIAL SLOW IVP PRN (05:34)
[2020-09-16] MEDS ORDERED: Piperacillin/Tazobactam 4.5 GM in Sodium Chloride 0.9% 100 ML IVPB SCH (06:00)
[2020-09-16] MEDS ORDERED: Ondansetron PF 4 MG/2 ML Vial IVP PRN (06:16)
[2020-09-16] MEDS ORDERED: Ondansetron ODT 4 MG TAB PO PRN (06:16)
--- NOTE | 2020-09-16 06:19 | PDOC.HHP ---
Hospitalist HPI - History of Present Illness Abdominal pain and vomiting History of Present Illness: This is a 65-year-old female patient with a history of hypertension, COPD who was recently admitted on account of NSTEMI, and managed also for cholecystitis and pancreatitis. She was discharged yesterday at about 4 PM and however on returning home started feeling generally unwell with poor intake nausea and vomiting. She also had worsening abdominal pain with alteration in mental status. His sister was in the room with him noted that she has intermittent hallucinations. This led him to come to the ED due to concerns of worsening of his situation. On arrival blood pressure was 176/93, pulse 76, respiratory rate 18, temperature 98.1 and saturating at 94% on room air. Labs showed no leukocytosis, 3 bands, chemistry was concerning for hypokalemia of 2.9 and elevated liver enzymes. Troponin was at 0.691 from a baseline of 4.47 which was last recorded during admission. She was given potassium IV, morphine Protonix and promethazine. Hospitalist team was consulted for admission. At the time I saw her patient was slightly confused and lethargic and very weak. Her sister answered most of her questions. She still notes severe abdominal pain especially in the epigastric region. Nausea has ceased at the moment. Hospitalist ROS - Review of Systems ROS unobtainable: due to mental status Hospitalist History - Past Medical History Other Medical History: hypertension, COPD - Past Surgical History Other Surgical History: Back surgery - Social History Smoking Status: Never smoker Alcohol: reports: None Drugs: reports: none Living Situation: With Family - Exam General Appearance: ill appearing General - other findings: Awake, slightly somnolent Eye: PERRL, anicteric sclera ENT: normocephalic atraumatic Heart: RRR, no murmur, no gallops, no rubs Respiratory: CTAB, no wheezes, no rales, no ronchi Gastrointestinal: soft Gastrointestinal - other findings: Severely tender in epigastrium and right upper quadrant. No rebound tender Extremities: no cyanosis, no clubbing, no edema Neurological: cranial nerve grossly intact, no focal deficits Psychiatric: oriented to person Psychiatric - other findings: Somnolent and lethargic. Hospitalist Results - Labs Result Diagrams: 09/17/20 04:08 09/17/20 04:08 Lab results: WBC 7.3 thou/uL (4.8-10.8) 09/16/20 02:59 Hgb 14.1 g/dL (12.0-16.0) 09/16/20 02:59 Hct 40.7 % (36.0-47.0) 09/16/20 02:59 MCV 84.1 fL (78.0-98.0) 09/16/20 02:59 Plt Count 138 thou/uL (130-400) 09/16/20 02:59 Neutrophils % 70.6 % (42.0-75.0) 09/16/20 02:59 Sodium 136 mmol/L (136-145) 09/16/20 02:59 Potassium 2.9 mmol/L (3.5-5.1) L* 09/16/20 02:59 Chloride 101 mmol/L (98-107) 09/16/20 02:59 Carbon Dioxide 24 mmol/L (23-31) 09/16/20 02:59 BUN 12 mg/dL (9.8-20.1) 09/16/20 02:59 Creatinine 0.71 mg/dL (0.6-1.1) 09/16/20 02:59 Glucose 121 mg/dL (80-115) H 09/16/20 02:59 Lactic Acid 1.1 mmol/L (0.5-2.2) 09/16/20 02:59 Calcium 8.9 mg/dL (7.8-10.44) 09/16/20 02:59 Total Bilirubin 2.4 mg/dL (0.2-1.2) H 09/16/20 02:59 AST 446 U/L (5-34) H 09/16/20 02:59 ALT 137 U/L (8-55) H 09/16/20 02:59 Alkaline Phosphatase 200 U/L (40-110) H 09/16/20 02:59 Creatine Kinase 264 U/L (29-168) H 09/16/20 02:59 CK-MB (CK-2) 2.4 ng/mL (0-6.6) 09/16/20 02:59 Troponin I 0.691 ng/mL (< 0.028) H* 09/16/20 02:59 Serum Total Protein 6.6 g/dL (6.0-8.3) 09/16/20 02:59 Albumin 4.1 g/dL (3.4-4.8) 09/16/20 02:59 Lipase 70 U/L (8-78) 09/16/20 02:59 Hospitalist H&P A/P - Plan Plan: This a 65-year-old female patient with a history of hypertension and COPD recently status post cholecystostomy tube placement, managed for hypertension and MD coming back a day after discharge on account of worsening abdominal pain vomiting and worsening of her mental state. Her condition is generally concerning for sepsis Possible sepsis Patient altered recent surgical procedure. No leukocytosis however. Source likely hepatobiliary system Started on vancomycin and Zosyn Blood cultures She is severely hypotensive with systolic around the 180swe will hold on IV fluid replacement. Follow-up on cultures. -Cholangitis increasing bilirirunin and liver enzymes GI/Surgery consult continue antibiotics Acute encephalopathy Likely due to sepsis We will treat underlying cause CT scan of head to rule out any intracranial event. Status post cholecystostomy tube placement. Tube draining increased Consults surgery morning for reevaluation. Severe hypokalemia Replace as per protocol Check magnesium in a.m. VT prophylaxisLovenox CODE STATUSfull code
[2020-09-16 07:18] VITALS: BMI 32.1
[2020-09-16] MEDS ORDERED: Magnesium 2 GM/50 ML 2 GM in Premix Bag 1 BAG IVPB SCH ×2 (07:30→18:00)
[2020-09-16] MEDS ORDERED: Acetaminophen 325 MG TAB PO PRN (08:03)
--- NOTE | 2020-09-16 08:20 | CT ---
PRELIMINARY REPORT/[facility]/EMERGENCY AFTER HOURS PROCEDURE EXAM: CT Head Without Intravenous Contrast. CLINICAL HISTORY: AMS..PT PRESENTS SUB BASELINE. NO PREVIOUS CT HEAD ON PACS. TECHNIQUE: Axial computed tomography images of the head/brain without intravenous contrast. COMPARISON: None provided. FINDINGS: BRAIN: No acute intraparenchymal hemorrhage. No mass lesion. No CT evidence for acute territorial infarct. N o midline shift or extra-axial collection. VENTRICLES: No hydrocephalus. ORBITS: The orbits are unremarkable. SINUSES AND MASTOIDS: The paranasal sinuses are clear. There is partial opacification of the left mastoid air cells. SOFT TISSUES: No significant facial or scalp soft tissue swelling evident. No radiopaque foreign body is seen. BONES: No acute skull fracture. IMPRESSION: No acute intracranial abnormality. Partial opacification of the left mastoid air cells may be correlated for mastoiditis. ELECTRONICALLY SIGNED BY: Dasha Blake MD Sep 16, 2020 6:30:54 AM DRAPERY SUPERVISOR This report is intended for review by the ordering physician only, in accordance of law. If you recei ve this report in error, please call [facility] at [phone]. FINAL REPORT Exam: Head CT without contrast HISTORY: Altered mental status, below baseline. COMPARISON: none FINDINGS: Hemorrhage: No intraparenchymal hemorrhage or extra-axial hematoma. Brain parenchyma: Cortical mack-white matter differentiation is preserved. No mass effect or midline shift. Basilar cisterns are patent. Ventricular system: Ventricles and sulci are patent and symmetric. Calvarium: Intact. Sinuses and mastoid air cells: Partial opacification of the left mastoid air cells. Minimal desiccati on of the right frontal sinus. IMPRESSION: 1. This report is in agreement with the initial report by [facility]. 2. No acute intracranial process. 3. Right frontal sinus and left mastoid air cell opacification. Correlate clinically. Transcribed Date/Time: 09/16/2020 10:17 AM
[2020-09-16] MEDS ORDERED: Iopamidol 370 76% 100 ML VIAL ONE (08:24)
[2020-09-16] MEDS: Dextrose 5 % And 0.9 % NaCl 1,000 ML IV SCH ×2 (08:34→21:14)
[2020-09-16] MEDS: Potassium Chloride 20 MEQ in Premix Bag 1 BAG IVPB SCH ×5 (08:37→22:20)
--- NOTE | 2020-09-16 08:57 | CT ---
PRELIMINARY REPORT/[facility]/EMERGENCY AFTER HOURS PROCEDURE EXAM: CT Abdomen and Pelvis with Intravenous Contrast CLINICAL HISTORY: MID UPPER ABD PAIN STARTED AGAIN TODAY WITH N/V SX HX APPENDECTOMY, 2 X BACK SX, 1 X NECK SX TECHNIQUE: Axial computed tomography images of the abdomen and pelvis with intravenous contrast. CONTRAST: With; ISOVUE 370,60mL COMPARISON: None provided. FINDINGS: LUNG BASES: No basilar airspace consolidation or pleural effusion. LIVER: Unremarkable. GALLBLADDER AND BILE DUCTS: Cholecystostomy drainage tube is noted. Gallbladder is distended. Correlate with tube output. Tube ch julia could be considered for further evaluation. PANCREAS: Unremarkable. SPLEEN: Unremarkable. ADRENAL GLANDS: Unremarkable. KIDNEYS, URETERS, AND BLADDER: Unremarkable. No hydronephrosis or nephrolithiasis. No ureteral or bladder calculi. STOMACH AND BOWEL: No obstruction. No wall thickening. No CT evidence of colitis or acute diverticulitis. APPENDIX: Status post appendectomy. PERITONEUM: No free fluid. No free air. LYMPH NODES: No lymphadenopathy. REPRODUCTIVE: Unremarkable as visualized. VASCULATURE: No aortic aneurysm. BONES: No fracture or suspicious osseous abnormality. ABDOMINAL WALL AND SOFT TISSUES: Unremarkable. IMPRESSION: Cholecystostomy drainage tube is noted. Gallbladder is distended. Correlate with tube output. Tube ch julia could be considered for further evaluation. ELECTRONICALLY SIGNED BY: Nikita Nieves MD Sep 16, 2020 3:49:04 AM SHEEP KILLER This report is intended for review by the ordering physician only, in accordance of law. If you recei ve this report in error, please call [facility] at [phone]. FINAL REPORT Final report by Dr. Meredith Emergency after-hours study CT ABDOMEN WITH CONTRAST CT PELVIS WITH CONTRAST: DATE: 09/16/2020 3:39 AM HISTORY: 65-year-old female with right upper quadrant abdominal pain COMPARISON: 09/12/2020 TECHNIQUE: IV injection of iodinated contrast media: administered. Oral contrast media:Not administered FINDINGS: Previously, the gallbladder was distended, and has mural edema. Now, there is a percutaneous cholecystostomy drainage catheter with pigtail loop, within the lumen of the gallbladder. Gallbladder is even more distended now than before. There is a new finding of high density material (density is 61 Hounsfield units), consistent with hem atoma filling the entire lumen of the gallbladder. No major pathology identified involving kidneys, adrenals, pancreas, liver, spleen, or urinary bladde r. No small bowel dilation, ascites, pneumoperitoneum, colonic diverticulitis, pleural effusion, or etelvina r basilar pulmonary consolidation. Severe bilateral facet DJD at lower lumbar spine. Appendix is not visualized, probably surgically absent. The preliminary report by [facility] did not mention that the gallbladder is filled with hemato ma. This is a minor disagreement. No major disagreement. IMPRESSION: 1) Gallbladder is filled with large hematoma completely. It is more severely distended than previousl y. 2) Percutaneous cholecystostomy tube. Transcribed Date/Time: 09/16/2020 10:25 AM
[2020-09-16] MEDS ORDERED: Enoxaparin Sodium 40 MG/0.4 ML SYRINGE SC SCH (09:00)
--- NOTE | 2020-09-16 09:11 | RAD ---
RADIOGRAPH CHEST 1 VIEW: DATE: 09/16/2020 3:04 AM HISTORY: 65-year-old female with upper abdominal/chest pain FINDINGS: There is no airspace density, pulmonary edema, or pneumothorax. The lateral costophrenic angles are n ot effaced. No pneumoperitoneum. IMPRESSION: No acute pulmonary findings.
--- NOTE | 2020-09-16 09:42 | CON ---
DATE OF CONSULTATION: 09/16/2020 REQUESTING PHYSICIAN: Tito De Leon MD HISTORY OF PRESENT ILLNESS: Ms. Mandujano is a 65-year-old woman, who was recently admitted on 09/12/2020 with acute onset of severe epigastric abdominal pain associated with multiple episodes of nausea and emesis. Pain radiated to the back. Workup at that time included a CT scan of the abdomen and pelvis as well as abdominal ultrasound, both of which were consistent with acute cholecystitis with cholelithiasis. Laboratory workup also indicated serial elevation of troponin I. As a result, acute coronary syndrome was suspected. Further workup included echocardiography, which was unremarkable for any structural or functional abnormalities. Due to these changes, conservative therapy was elected at that time, which included percutaneous cholecystostomy tube placement. The patient was to be followed outpatient and elective laparoscopic cholecystectomy was to be performed within 6 weeks from this discharge. The patient was discharged to home yesterday, and late last night, she developed worsening epigastric abdominal pain, at this time associated with some chills, and the family reported the patient was confused. She presented to emergency department and underwent additional workup. Laboratory studies, at this time, though, with normal complete blood count. Chemistry was markedly abnormal with a potassium of 2.9, and all LFTs were elevated. Total bilirubin is 2.4, AST and ALT are 446 and 137 respectively. Alkaline phosphatase was also elevated at 200. It must be noted though that LFTs were normal during the recent admission. Troponin I at this time is 0.691. During the last hospitalization, it was as high as 5.286. Serum lipase today is normal at 70 units/L. At the time of my evaluation, she is more lucid and interactive. She was able to provide me with additional history. PAST MEDICAL HISTORY: Pertinent for essential hypertension, COPD, chronic anxiety, and recent acute cholecystitis with cholelithiasis. PAST SURGICAL HISTORY: Pertinent for lumbar spinal surgery in 1993 and appendectomy. FAMILY HISTORY: Noncontributory for this patient's age. PREHOSPITALIZATION MEDICATIONS: Include: 1. Aspirin 81 mg p.o. daily. 2. Lexapro 20 mg p.o. daily. 3. Hydrochlorothiazide 25 mg p.o. daily. 4. Loratadine 10 mg p.o. daily. 5. Losartan 25 mg p.o. daily. 6. Metoprolol 50 mg p.o. daily. 7. Montelukast 10 mg p.o. at bedtime. 8. Tizanidine 4 mg p.o. t.i.d. 9. Tramadol 50 mg p.o. q.6 hours p.r.n. pain. ALLERGIES: TO HYDROCODONE AND guaifenesin. REVIEW OF SYSTEMS: Ten-point review of systems essentially unremarkable, except as stated in the past medical history and chief complaint. PHYSICAL EXAMINATION: GENERAL: This reveals a 65-year-old normally developed woman, who is otherwise coherent, interactive, and appears stated age. The patient is alert and oriented x3. She appears to be in no acute distress at the time of my evaluation. VITAL SIGNS: Currently include a blood pressure of 179/95, pulse is 78, respiratory rate is 18, temperature is 98.1 degrees Fahrenheit, oxygen saturation is 98% on room air. HEENT: Reveals normocephalic and atraumatic. Pupils are equal, round, and reactive to light and accommodation. She has no scleral icterus present. HEART: Reveals regular rate and rhythm. No murmurs or gallops auscultated. LUNGS: Clear to auscultation bilaterally. Her breathing is regular and nonlabored. ABDOMEN: Soft with epigastric right upper quadrant tenderness to palpation. Cholecystostomy tube is in place and it is returning large amount of dark- colored bile. She has no peritoneal signs on examination. NEUROLOGIC: Reveals no focal deficits present. LABORATORY FINDINGS: Today include a CBC with 7300 white blood cells, hemoglobin and hematocrit of 14.1 and 40.7 respectively. Platelet count 138,000. PTT and INR normal at 26.7 seconds and 1.1 respectively. Metabolic profile: Sodium 136, potassium is 2.9, chloride is 101, bicarb is 24, BUN 12, creatinine 0.71, glucose 121, lactic acid is 1.1, total bilirubin is elevated at 2.4, AST and ALT are also elevated at 446 and 137 respectively. Alkaline phosphatase is elevated at 200. Serum lipase is normal at 70 units/L. I have personally reviewed the CT scan of the abdomen and pelvis obtained today, which reveals well-placed cholecystostomy tube. There is echogenic material within the gallbladder, which may represent clots. The gallbladder is distended. IMPRESSION: 1. Acute on chronic cholecystitis with cholelithiasis. 2. Highly probable choledocholithiasis versus common bile duct obstruction from biliary sludge or blood clots. 3. Acute cholangitis, secondary to above. RECOMMENDATIONS: 1. I have asked Cardiology to evaluate the patient to provide guidance with regard to the recent troponin I elevation. 2. The patient needs to be seen by Gastroenterology for urgent ERCP and clearance of the common bile duct, following which a laparoscopic cholecystectomy will be performed in the same general anesthetic setting. The above findings and recommendations have been discussed with the patient in the presence of her nurse. I have advised her of the risks and benefits of the proposed surgery to include, but not limited to bleeding, infection, injury to bile duct, or surrounding structures. The patient indicates understanding of the information provided. I have answered her questions. She has granted consent for the proposed surgical intervention. Thank you again, Dr. De Leon, for allowing me the opportunity to participate in the care of this patient. Job ID: [id number] MTDD
[2020-09-16] MEDS: Vancomycin 1.5 GRAM/300 ML BAG 1.5 GM in Premix Bag 1 BAG IVPB SCH ×2 (10:20→21:54)
[2020-09-16 10:30] LABS: Bacteria/HPF None Seen HPF (None Seen); Bilirubin Negative (Negative); Blood, Urine Trace (Negative); Clarity Clear (Clear); Glucose, Urine (Dipstick) Normal (Negative); Ketone, Urine Trace mg/dL (Negative); Leukocyte Negative Leu/uL (Negative); Nitrite Negative (Negative); Protein, Urine (Dipstick) 20 mg/dL (Neg-Trace); Specific Gravity, Urine 1.034 (1.002-1.036); Squamous Epithelial 0-3 HPF (0-3); pH, Urine 6.5 (5.0-9.0)
[2020-09-16 10:35] LABS: Urine Culture Reflex Yes Yes
--- NOTE | 2020-09-16 11:25 | CON ---
DATE OF CONSULTATION: 09/16/2020 REQUESTING PHYSICIAN: Tito De Leon MD REASON FOR CONSULTATION: Concern for cholangitis. HISTORY OF PRESENT ILLNESS: Austin Mandujano is a 65-year-old woman who was recently admitted to the hospital for a few days and discharged yesterday with acute cholecystitis and cholelithiasis. She had significant troponin elevation at that time with shortness of breath and so rather than cholecystectomy, she underwent cholecystostomy tube placement on 09/13/2020. The patient had improvement in presenting symptoms of abdominal pain. She had some cardiac workup including echocardiography and catheterization which was essentially negative. Troponin trended down. She was discharged yesterday. However, last night at home, she had acute worsening of epigastric and right upper quadrant pain with nausea and vomiting. Thereafter, the cholecystostomy tube drainage changed from clear bile to more bloody bile. She had a bit of altered mental status. Upon presentation again to the hospital, she has a new LFT elevation with total bilirubin 2.4, AST 446, and ALT 137. CT imaging suggests severe gallbladder distention with what appears to be clot within the gallbladder, though the cholecystostomy tube remains in place. Troponin is down from before currently at 0.691. She is not having any chest pain, just some mild dyspnea. Dr. Juárez has evaluated the patient and is planning on cholecystectomy today. I was consulted to consider preoperative ERCP for bile duct clearance given the concern for hemobilia and possible cholangitis. Notably, her white count is normal. Mental status has improved. She was started on broad antibiotics. REVIEW OF SYSTEMS: Full review of systems including constitutional, head, eyes, ears, nose, throat, GI, , cardiovascular, respiratory, musculoskeletal, neurologic systems is negative except as noted in the HPI. PAST MEDICAL HISTORY: Hypertension, COPD, anxiety, recent acute cholecystitis with cholelithiasis, status post cholecystostomy tube placed 2 days ago, lumbar spinal surgery in 1993, appendectomy. FAMILY HISTORY: Noncontributory. ALLERGIES: HYDROCODONE AND GUAIFENESIN. OUTPATIENT MEDICATIONS: 1. Aspirin 81 mg daily. 2. Lexapro. 3. Hydrochlorothiazide. 4. Loratadine. 5. Losartan. 6. Metoprolol. 7. Montelukast. 8. Tizanidine. 9. Tramadol. CURRENT INPATIENT MEDICATIONS: 1. Tylenol p.r.n. 2. Zosyn 4.5 g IV q.8 hours. 3. Vancomycin 1.5 g IV q.12 hours. 4. Potassium chloride. 5. Zofran p.r.n. PHYSICAL EXAMINATION: VITAL SIGNS: Temperature 98.1, pulse 78, blood pressure 179/95, and 98% oxygen saturation on room air. GENERAL: Chronically-ill appearing 65-year-old woman, lying in bed, in mild distress from abdominal pain. SKIN: No jaundice. No rashes were palpable. HEENT: Eyes, no scleral icterus. Extraocular movements intact. ENT, mucous membranes moist. No oral lesions. LYMPH: No submandibular or supraclavicular lymphadenopathy. Thyroid, nontender to palpation. HEART: Regular rate and rhythm. LUNGS: Clear to auscultation bilaterally. ABDOMEN: Nondistended, soft. She is tender to palpation in the epigastrium and right upper quadrant. Cholecystostomy tube is in place and was returning a large amount of reddish bile concerning for hemobilia. EXTREMITIES: No peripheral edema. VESSELS: Radial pulses 2+ bilaterally. NEUROLOGIC: Cranial nerves 2 through 12 intact bilaterally. No focal deficits. LABORATORY STUDIES: WBC 7.3, hemoglobin 14.1, and platelets 138. INR 1.1. Sodium 136, potassium 2.9, BUN 12, creatinine 0.71, glucose 121. Lactic acid only 1.1. Total bilirubin up to 2.4, alkaline phosphatase 200, AST up to 446, ALT up to 137. CK is 264, CK-MB only 2.4. Troponin down to 0.691. Albumin normal at 4.1. Lipase normal at 70. IMAGING STUDIES: Brain CT showed no acute processes. Chest x-ray showed no acute findings. CT of the abdomen and pelvis demonstrates worsening gallbladder distention. Percutaneous cholecystostomy drainage catheter with pigtail loop within the lumen of the gallbladder. New finding of high-density material consistent with hematoma filling the entire lumen of the gallbladder. ASSESSMENT AND PLAN: 1. Hemobilia, post cholecystostomy tube a couple of days ago. 2. LFT elevation, new, concerning for biliary obstruction and cholangitis. 3. Acute cholecystitis with cholelithiasis. The patient is currently clinically stable, but has concerning findings of new hemobilia and LFT elevation and worsening abdominal pain in the context of recent cholecystostomy tube placement. This is all concerning for development of biliary obstruction either from sludge or blood clots, and possibly early cholangitis. Agree with the empiric IV antibiotics. Dr. Juárez was planning to take the patient for cholecystectomy later today and has requested we consider preoperative ERCP. I agree that this is certainly indicated. We will attempt to clear the bile duct. Depending on findings, we may need to place a biliary stent at the time of the procedure. The plan would be to proceed for laparoscopic cholecystectomy directly following the ERCP under the same anesthesia. I have discussed the procedure in detail with the patient and her daughter including the potential risks and benefits, and they desire to proceed. We will plan for ERCP later today. Thank you for the consultation. Please call anytime with questions or concerns. Job ID: [id number]
[2020-09-16] MEDS ORDERED: Rocuronium Bromide 10 MG/ML (10ML VIAL) ONE (11:56)
[2020-09-16] MEDS ORDERED: Lidocaine 1% PF 5 ML VIAL ONE (11:56)
[2020-09-16] MEDS ORDERED: Ondansetron PF 4 MG/2 ML Vial ONE (11:56)
[2020-09-16] MEDS ORDERED: PHENYLEPHRINE-NS 100 MCG/ML 10 ML SYRINGE ONE (11:56)
[2020-09-16] MEDS ORDERED: Dexamethasone 20 MG/5 ML VIAL ONE (11:56)
[2020-09-16] MEDS ORDERED: PROPOFOL 200 MG/20 ML VIAL ONE (11:56)
[2020-09-16] MEDS ORDERED: Bupivacaine 0.25% HCL 30 ML VIAL ONE (12:45)
[2020-09-16] MEDS ORDERED: Fentanyl 100 MCG/2 ML VIAL ONE ×2 (12:50→16:21)
[2020-09-16] MEDS ORDERED: Iothalamate Meglumine 60% 50 ML VIAL FS ONE (12:53)
[2020-09-16] MEDS ORDERED: Phenylephrine 10 MG/ML VIAL ONE (13:32)
[2020-09-16] MEDS ORDERED: Albumin 5% 500 ML ONE (14:16)
[2020-09-16] MEDS ORDERED: Indomethacin 50 MG SUPP ONE (15:12)
[2020-09-16] MEDS ORDERED: SUGAMMADEX SODIUM 200 MG/2 ML VIAL ONE (15:27)
--- NOTE | 2020-09-16 15:57 | OP ---
DATE OF PROCEDURE: 09/16/2020 PREOPERATIVE DIAGNOSES: 1. Acute cholecystitis with cholelithiasis. 2. Acute cholangitis, likely secondary to hemobilia causing common bile duct obstruction. POSTOPERATIVE DIAGNOSES: 1. Acute cholecystitis with cholelithiasis. 2. Acute cholangitis, likely secondary to hemobilia causing common bile duct obstruction. PROCEDURES PERFORMED: 1. Laparoscopic cholecystectomy. 2. Removal of percutaneous cholecystostomy tube. ANESTHESIA: General endotracheal. ESTIMATED BLOOD LOSS: 20 mL. FLUIDS GIVEN: 500 mL of crystalloids and 500 mL of 5% albumin. COUNTS: Sponge and instrument counts were verified as correct x2. COMPLICATIONS: None apparent at the time of operation. INDICATIONS FOR OPERATION: This is a 65-year-old woman who was recently admitted with acute cholecystitis with cholelithiasis. She was incidentally found with elevated troponin. The cholecystitis was treated with placement and the patient was discharged to home yesterday. She returned to the emergency department late last night with worsening abdominal pain, this time associated with abnormal LFTs and delirium. Cholangitis is suspected, for which the patient was brought to the operating room for cholecystectomy followed by ERCP. Findings are consistent with markedly distended gallbladder, packed with clots. DESCRIPTION OF PROCEDURE: Informed consent was obtained from the patient, who was brought to the operating room and placed in supine position. Following general anesthesia, abdomen was sterilely prepped and draped in usual fashion. The skin below the umbilicus was infiltrated with 0.25% Marcaine with epinephrine. A small curvilinear infraumbilical incision was made using an 11 scalpel. Umbilical stalk was grasped with Eze and elevated. Veress needle inserted through incision and placed in the peritoneal cavity, through which the abdomen was insufflated with 3 L of CO2 gas. Veress needle was removed and a 5 mm trocar introduced using Visiport under laparoscopy. Laparoscopy confirmed proper placement of the port without any injuries to underlying structures. Additional laparoscopy reveals purplish discoloration of mid transverse colon and an area suspicious for segmental ischemia, though no evidence of necrosis as there was good peristalsis coursing through this region. Additional laparoscopy reveals markedly distended gallbladder in the usual anatomic location with the cholecystostomy tube entering the gallbladder superiorly. At this juncture, a 12 mm epigastric and two 5 mm right lateral subcostal ports were placed after the overlying skin was infiltrated with 0.25% Marcaine with epinephrine. Appropriate incision was made. The patient was placed in a reverse Trendelenburg position, rotated to her left. I introduced Prestige grasper through the right lateral subcostal port, grasping the fundus of the gallbladder which was elevated cephalad. A second Prestige grasper was introduced through the right medial subcostal port grasping the Penny pouch, which was retracted laterally. I opened the peritoneum of the gallbladder infundibulum using a [place] dissector. The cystic duct and artery were individually dissected free from surrounding structures. Critical view of the triangle was obtained. The cystic artery divided between clips, applying two clips proximally and one clip at the junction of the cystic artery and gallbladder. Cystic duct was then divided between clips in a similar fashion. The gallbladder was removed from the liver bed with cautery. The cholecystostomy tube was removed under direct vision and the area where the tube came through the liver into the gallbladder was inspected. There was active venous extravasation here. Hemostasis was readily achieved using cautery. The remainder of the gallbladder was then removed from the liver bed and delivered off the abdominal cavity using an EndoCatch. Operative site was inspected for good hemostasis. In order to deliver the gallbladder out of the abdominal cavity, it was opened, though still within the EndoCatch, and a large amount of clots was evacuated to allow for ease of removal of the gallbladder from the peritoneal cavity. Operative site was inspected again for good hemostasis. There was just minor oozing in the gallbladder fossa, hemostasis was readily achieved there using Luigi. The fascia of the epigastric port was then closed using 0 Vicryl suture and Endoclosure device under laparoscopy. The abdomen was desufflated. All ports and instruments removed and accounted for. Skin incisions were closed using 4-0 Monocryl suture in subcuticular fashion. Dermabond was applied over incisional closure. The patient tolerated this operation without any apparent complication and was transferred to the endoscopy suite for ERCP. Job ID: [id number]
[2020-09-16] MEDS ORDERED: Promethazine HCl 25 MG/ML VIAL IM PRN (16:01)
[2020-09-16] MEDS ORDERED: Ondansetron HCl/PF 4 MG/2 ML Vial IVP PRN (16:01)
[2020-09-16] MEDS ORDERED: Promethazine HCl 25 MG/ML VIAL SLOW IVP PRN (16:01)
--- NOTE | 2020-09-16 16:22 | RAD ---
ERCP: 09/16/20 HISTORY: Biliary stones. Two views are presented for interpretation. These show filling of the common bile duct and right and left hepatic ducts. I do not see any definitive filling defects on the second image which shows winter r filling of the ducts. Ampullary region is not visualized on either of these images. IMPRESSION: No definite biliary ductal calculus. POS: ANGELICA
[2020-09-16] MEDS ORDERED: hydrALAZINE 20 MG/ML VIAL ONE (16:54)
[2020-09-16] MEDS ORDERED: Ibuprofen 600 MG TAB PO PRN (16:59)
[2020-09-16] MEDS ORDERED: traMADol HCl 50 MG TAB PO PRN (16:59)
[2020-09-16] MEDS: Piperacillin/Tazobactam 4.5 GM in Sodium Chloride 0.9% 100 ML IVPB SCH ×3 (17:19→21:13)
[2020-09-16] MEDS: Acetaminophen 325 MG TAB PO SCH ×2 (17:57→23:47)
[2020-09-16] MEDS: Enoxaparin Sodium 40 MG/0.4 ML SYRINGE SC SCH (21:14)
--- NOTE | 2020-09-16 21:43 | OP ---
DATE OF PROCEDURE: 09/16/2020 This is a GI endoscopy note. SUBMARINE DIVER SURGEON: None. PROCEDURE: ERCP with biliary sphincterotomy and extraction of common bile duct debris, specifically extensive blood clots. INDICATIONS: 1. Hemobilia, in a patient who is 3 days status post cholecystostomy tube placement. 2. Elevated LFTs, secondary to biliary obstruction, likely from the hemobilia. 3. Concern for early cholangitis. MEDICATIONS: 1. Indomethacin 100 mg per rectum, as periprocedural prophylaxis against post ERCP pancreatitis. 2. See Anesthesia record. FINDINGS: After discussion of the risks, benefits, and alternatives of the procedure, informed consent was obtained and witnessed. The patient was brought to the endoscopy room from the OR following her laparoscopic cholecystectomy. She was already under general anesthesia. She was placed in a semi-prone position on the fluoroscopy table. A Pentax adult side-viewing duodenoscope was inserted into the mouth and passed forward beyond the esophagus and into the stomach. Indirect views of the gastric mucosa demonstrate a shallow antral ulceration, which is clean based, nonbleeding. The duodenoscope was advanced beyond the pylorus and into the first and then second portion of the duodenum. The ampulla was brought into view with the endoscope in the short position. The ampulla appears normal, but there is blood coming continuously from the ampulla. Using a triple-lumen DomeTip sphincterotome and a 0.035 guidewire, I was able to selectively cannulate the common bile duct. The guidewire was passed up into the left intrahepatic ductal system. Cholangiogram was then performed. This demonstrates extensive filling defects throughout the length of the common bile duct, particularly the distal common bile duct, consistent with known hemobilia. At this point, a generous biliary sphincterotomy was performed. With the sphincterotomy, multiple clots extruded through the ampulla. A wire exchange was then performed exchanging the sphincterotome for a 9 to 12 mm extraction balloon. This was passed up into the common bile duct. Multiple balloon sweeps were made in this fashion. Copious blood clots were extracted from the common bile duct. We then performed irrigation extensively with normal saline and further clots were extracted. We spent some time on this, alternately performing balloon sweeps and irrigating the bile duct to the best of our ability. In this fashion, I do believe, we have extracted all significant clots from the biliary system. Occlusion cholangiogram was then performed and it did not demonstrate any appreciable residual filling defects in the biliary tree. After occlusion cholangiogram, a couple of more balloon sweeps were made to sweep out excess contrast. We then irrigated with another 60 mL of normal saline and the return from the bile duct was all clear. I elected not to place a stent across the ampulla, as the biliary system does appear clear on cholangiogram, and any residual clots would likely have a better chance of passing through the ampulla, then they would be passing around a stent. At this point, the working apparatus in the duodenoscope was completely withdrawn suctioning out excess air and fluid. Postprocedure fluoroscopic images demonstrated no retroperitoneal or subdiaphragmatic free air. The patient tolerated the procedure well. There were no immediate postprocedure complications. IMPRESSION: 1. Extensive blood clot filling the common bile duct, consistent with known hemobilia. 2. Successful endoscopic retrograde cholangiopancreatography with biliary sphincterotomy and extraction of clots and debris using balloon sweep and saline irrigation. 3. Clear occlusion cholangiogram at the end of the procedure. RECOMMENDATION: 1. Clear liquid diet. 2. Monitor for any potential complications, including post endoscopic retrograde cholangiopancreatography pancreatitis. Please call anytime with questions or concerns. Job ID: [id number]
--- NOTE | 2020-09-16 22:15 | CON ---
DATE OF CONSULTATION: HISTORY OF PRESENT ILLNESS: Patient is a 65-year-old woman with a history of recent myocardial infarction, who presented with abdominal discomfort. The patient was recently in the hospital with abdominal and chest discomfort. She had a slight elevation of troponin during her recent hospital visit.She was felt to have suffered a small non-Q-wave myocardial infarction. An echocardiogram revealed her to have normal left ventricular ejection fraction at 55% to 60% The patient presented with acute abdominal discomfort. The patient today underwent a cholecystectomy. She denies having any present chest discomfort. PAST MEDICAL HISTORY: : 1. Myocardial infarction. 2. COPD. 3. Hypertension. 4. Asthma. 5. Depression. PAST SURGICAL HISTORY: Cholecystectomy. ALLERGIES: MUCINEX AND HYDROCODONE. MEDICATIONS ON ADMISSION: 1. Metoprolol 50 XL daily. 2. Aspirin 81 daily. 3. Lexapro 20 daily. 4. Cozaar 25 daily. 5. Hydrochlorothiazide 25 daily. PHYSICAL EXAMINATION: VITAL SIGNS: Blood pressure was high at 166/72. NECK: No jugular vein distention. LUNGS: Clear to auscultation. HEART: Regular rate and rhythm. Normal S1, S2. ABDOMEN: Distended. EXTREMITIES: Trace edema. VASCULAR: Radial pulse 2+. LABORATORY DATA: Sodium 136, potassium 2.9, chloride 101, bicarbonate 24, BUN 12, creatinine 0.71, glucose 121. White blood count 7.3, hemoglobin 14.1, hematocrit 40.7, platelets 138. EKG normal sinus rhythm with left axis deviation. IMPRESSION: 1. Status post cholecystectomy. 2. Hypertension. 3. Chronic obstructive pulmonary disease. 4. Recent myocardial infarction. 5. Depression. PLAN: This patient underwent a cholecystectomy. From a cardiac standpoint since she had a recent ME, I would like to restart her on a beta tony.I would hold aspirin for now. I will start Toprol 50 mg XL tonight and restart Cozaar in the morning. Job ID: [id number] MTDD
[2020-09-17 04:34] LABS: #Lymphocytes 0.4 thou/uL (1.20-3.40); #Monocytes 0.3 thou/uL (0.11-0.59); #Neutrophils 4.8 thou/uL (1.40-6.50); %Eosinophils 0.6 % (0.0-10.0); %Lymphocytes 7.5 % (21.0-51.0); %Neutrophils 85.9 % (42.0-75.0); Hemoglobin 12.1 g/dL (12.0-16.0); Mean Corpuscular HGB CONC 33.6 g/dL (32.0-36.0); Mean Corpuscular Hemoglobin 28.7 pg (27.0-31.0); Mean Corpuscular Volume 85.3 fL (78.0-98.0); Mean Platelet Volume 7.2 fL (7.4-10.4); Platelet Count 123 thou/uL (130-400); RBC Distribution Width 13.1 % (11.5-14.5); Red Blood Cell (RBC) Count 4.21 mill/uL (4.20-5.40); White Blood Cell (WBC) Count 5.6 thou/uL (4.8-10.8)
[2020-09-17 05:00] LABS: ALT (SGPT) 275 U/L (8-55); AST (SGOT) 496 U/L (5-34); Alkaline Phosphatase 227 U/L (40-110); Anion Gap 14 mmol/L (10-20); BUN (Urea Nitrogen) 9 mg/dL (9.8-20.1); Bilirubin, Direct 2.3 mg/dL (0.1-0.3); Bilirubin, Total 2.9 mg/dL (0.2-1.2); Calc. Creatinine Clearance 94 mL/min (70-130); Calcium 8.4 mg/dL (7.8-10.44); Carbon Dioxide 20 mmol/L (23-31); Chloride 108 mmol/L (98-107); Glucose 180 mg/dL (80-115); Lipase 106 U/L (8-78); Magnesium 2.6 mg/dL (1.6-2.6); Potassium 3.8 mmol/L (3.5-5.1); Protein, Total 6.3 g/dL (6.0-8.3); Sodium 138 mmol/L (136-145)
[2020-09-17 05:06] LABS: Phosphorus 1.1 mg/dL (2.3-4.7)
[2020-09-17] MEDS: Acetaminophen 325 MG TAB PO SCH ×3 (06:12→17:37)
[2020-09-17] MEDS: Piperacillin/Tazobactam 4.5 GM in Sodium Chloride 0.9% 100 ML IVPB SCH ×3 (06:13→20:17)
[2020-09-17] MEDS ORDERED: Potassium Phosphate 30 MMOL in Sodium Chloride 0.9% 500 ML IVPB SCH (06:30)
[2020-09-17] MEDS: traMADol HCl 50 MG TAB PO PRN ×2 (09:10→15:29)
[2020-09-17] MEDS ORDERED: Losartan 25 MG TAB PO SCH (09:45)
[2020-09-17] MEDS: Dextrose 5 % And 0.9 % NaCl 1,000 ML IV SCH (10:02)
[2020-09-17] MEDS: Vancomycin 1.5 GRAM/300 ML BAG 1.5 GM in Premix Bag 1 BAG IVPB SCH ×2 (10:06→20:18)
--- NOTE | 2020-09-17 11:54 | PRG ---
DATE OF SERVICE: 09/17/2020 SUBJECTIVE: Ms. Mandujano is doing a lot better today. She still does have some generalized abdominal soreness, particularly in the epigastrium and around her incision sites. Her appetite is not great, but she has tolerated some clear liquids this morning. She has been afebrile and hemodynamically stable. OBJECTIVE: VITAL SIGNS: Temperature 98.4, pulse 76, blood pressure 160/79, and 96% oxygen saturation on room air. GENERAL: In no acute distress. HEART: Regular rate and rhythm. LUNGS: Clear to auscultation bilaterally. ABDOMEN: Incision sites look good. Bowel sounds are active. There is diffuse tenderness to palpation, particularly in the epigastrium, but no guarding or rebound tenderness. EXTREMITIES: No peripheral edema. LABORATORY STUDIES: WBC 5.6, hemoglobin 12.1, and platelets 123. INR 1.1. Sodium 138, potassium 3.8, BUN 9, creatinine 0.76, glucose 180, total bilirubin 2.9, direct bilirubin 2.3, alkaline phosphatase 227, AST 496, and ALT 275. Overall, LFTs remain elevated to about the same degree as yesterday. Albumin 4.0. Lipase 106. ASSESSMENT AND PLAN: 1. Hemobilia, with extensive blood clots filling the gallbladder and common bile duct, now status post laparoscopic cholecystectomy and successful ERCP with biliary sphincterotomy and extraction of blood clots from the biliary system yesterday. 2. Early cholangitis, secondary to hemobilia. The patient has remained afebrile and hemodynamically stable on vancomycin and Zosyn. 3. Elevated LFTs. This is secondary to severe hemobilia. LFTs remain elevated to about the same degree yesterday, but I doubt any ongoing biliary obstruction. Expect to see LFTs declining over the next day or two. Dietary advancement per Surgical Service. We will continue to follow. Please call anytime with questions or concerns. Job ID: [id number]
--- NOTE | 2020-09-17 15:42 | PRG ---
DATE OF SERVICE: 09/17/2020 SUBJECTIVE: Ms. Mandujano is a 65-year-old woman. She is postoperative day #1, status post laparoscopic cholecystectomy and ERCP with sphincterotomy. She is awake and alert today. She reports adequate pain control, rating her pain 4/10 in contrast to 9/10 to 10/10 yesterday preoperatively. She is tolerating a clear liquid diet. She denies any nausea. She is passing flatus and ambulates with minimum difficulty. OBJECTIVE: VITAL SIGNS: Today include blood pressure 149/72, pulse 69, respiratory rate is 18, temperature is 98.6 degrees Fahrenheit, and oxygen saturation is 95% on room air. HEENT: Pupils are equally round and reactive to light and accommodation. She has no scleral icterus present. HEART: Regular rate and rhythm. LUNGS: Clear to auscultation bilaterally. Her breathing is regular and unlabored. ABDOMEN: Soft with incisional tenderness to palpation. She has no peritoneal signs on examination. NEUROLOGIC: No focal deficits present. LABORATORY FINDINGS: Today include a CBC with 5600 white blood cells, hemoglobin and hematocrit are 12.1 and 35.9 respectively, and platelet count is 123,000. Metabolic profile: Sodium 138, potassium 3.8, chloride is 108, bicarb is 20, BUN is 9, creatinine 0.76, and glucose 180. Total bilirubin is 2.9, this is up from 2.4 yesterday; AST and ALT are also elevated at 496 and 275 respectively compared to 446 and 137 respectively yesterday; alkaline phosphatase is also elevated at 227, this is up from 200 yesterday; serum lipase today is elevated at 106 compared to 70 yesterday. IMPRESSIONS: 1. Postoperative day #1, status post laparoscopic cholecystectomy and endoscopic retrograde cholangiopancreatography with sphincterotomy to evacuate hemobilia. 2. Mild acute pancreatitis. PLAN: 1. Continue with clear liquid diet and increase activity. 2. We will continue to monitor the patient with serial examinations. I anticipate resolution of the transaminitis and pancreatitis. The patient indicates understanding information provided today. I have answered her questions. Job ID: [id number]
[2020-09-17] MEDS ORDERED: Pantoprazole 40 MG VIAL IVP SCH (18:00)
[2020-09-17] MEDS: Enoxaparin Sodium 40 MG/0.4 ML SYRINGE SC SCH (20:17)
--- NOTE | 2020-09-17 22:13 | PDOC.HOSPP ---
- Subjective Encounter Date: 09/17/20 Encounter Time: 13:00 Subjective: Patient seen and examined for abdominal pain which is improving. Denies any nausea or vomiting. S/p ERCP. No Chest pain or palpitations reported - Objective Vital Signs & Weight: Vital Signs (12 hours) Temp Pulse Resp BP Pulse Ox 09/17/20 19:50 98.8 F 72 18 142/69 H 96 09/17/20 15:06 98.6 F 68 18 145/73 H 94 L 09/17/20 11:40 98.6 F 69 18 149/72 H 95 Weight Weight 177 lb 4.8 oz I&O: 09/16/20 09/17/20 09/18/20 06:59 06:59 06:59 Intake Total 3393 2400 Output Total 500 Balance 2893 2400 Result Diagrams: 09/17/20 04:08 09/17/20 04:08 Additional Labs: Abnormal Lab Results - Last 48 hrs 09/16/20 02:59: Potassium 2.9 L*, Total Bilirubin 2.4 H, AST 446 H, ALT 137 H, Alkaline Phosphatase 200 H, Creatine Kinase 264 H 09/16/20 02:59: Troponin I 0.691 H* 09/16/20 02:59: MPV 6.7 L, Lymphocytes % 17.6 L, Monocytes # 0.7 H 09/16/20 10:01: Urine Ketones Trace A, Urine Blood Trace A, Urine Urobilinogen 2.0 A, Urine RBC 7-10 A, Urine WBC 7-10 A, Urine Culture Reflexed Yes A 09/17/20 04:08: Chloride 108 H, Carbon Dioxide 20 L, BUN 9 L, Phosphorus 1.1 L, Total Bilirubin 2.9 H, Direct Bilirubin 2.3 H, AST 496 H, ALT 275 H, Alkaline Phosphatase 227 H, Lipase 106 H 09/17/20 04:08: Hct 35.9 L, Plt Count 123 L, MPV 7.2 L, Neutrophils % 85.9 H, Lymphocytes % 7.5 L, Lymphocytes # 0.4 L Microbiology - Entire Visit 09/16/20 10:34 Urine lea catheter Urine Culture - Preliminary Presumptive Enterococcus sp. 09/16/20 05:54 Venous blood - Right Hand Blood Culture - Preliminary Specimen has been received and culture in progress. No Growth to date. 09/16/20 05:54 Venous blood - Right Hand Blood Culture - Preliminary Specimen has been received and culture in progress. No Growth to date. EKG Reviewed by me: Yes (Sinus rhythm on telemetry) Hospitalist ROS - Review of Systems Respiratory: denies: cough, dry, shortness of breath, hemoptysis, SOB with excertion, pleuritic pain, sputum, wheezing, other Cardiovascular: denies: chest pain, palpitations, orthopnea, paroxysmal noc. dyspnea, edema, light headedness, other - Medication Medications: Active Medications Generic Name Dose Route Start Last Admin Trade Name Freq PRN Reason Stop Dose Admin Acetaminophen 650 mg 09/16/20 18:00 09/17/20 17:37 Acetaminophen 325 Mg Tab PO 650 mg Q6HR BITA Administration Enoxaparin Sodium 40 mg 09/16/20 21:00 09/17/20 20:17 Enoxaparin Sodium 40 Mg/0.4 Ml Syringe SC 40 mg 2100 BITA Administration Vancomycin HCl 1.5 gm/ Device 300 mls @ 200 mls/hr 09/16/20 09:00 09/17/20 20:18 IVPB 300 mls Q12HR BITA Administration Dextrose/Sodium Chloride 1,000 mls @ 75 mls/hr 09/16/20 06:15 09/17/20 10:02 D5 0.9% Ns IV Not Given .[id number] BITA Piperacillin Sod/Tazobactam 100 mls @ 200 mls/hr 09/16/20 21:00 09/17/20 20:17 Sod 4.5 gm/ Sodium Chloride IVPB 100 mls 0500,1300,2100 BITA Administration Metoprolol Succinate 50 mg 09/17/20 09:00 09/17/20 09:11 Metoprolol Succinate Xl 50 Mg Tab PO 50 mg DAILY BITA Administration Pantoprazole Sodium 40 mg 09/17/20 18:00 09/17/20 17:37 Pantoprazole 40 Mg Vial IVP 40 mg Q24HR BITA Administration Sodium Chloride 10 ml 09/16/20 09:00 09/17/20 20:18 Flush - Normal Saline 10 Ml Syringe IVF 10 ml Q12HR BITA Administration Tramadol HCl 100 mg 09/16/20 16:59 09/17/20 15:29 Tramadol Hcl 50 Mg Tab PO 100 mg Q6H PRN Administration Severe Pain (7-10) - Exam General Appearance: ill appearing Neck: supple, no JVD Heart: RRR, no gallops Respiratory: no wheezes, no ronchi Gastrointestinal: soft, non-tender, normal bowel sounds Extremities: no cyanosis Neurological: no new deficit Hosp A/P - Plan DVT proph w/SCDs Acute cholecystitis with cholelithiasis requiring cholecystectomy and ERCP Recent CT-guided cholecystostomy for cholecystitis Hemobilia/Mild acute pancreatitis Concern for early cholangitis Hypokalemia/hypophosphatemia Abnormal LFTs Recent non-ST elevation CO with negative cardiac catheterization Obesity with a BMI 30.4 Enterococcus UTI Plan: Continue clear liquid diet. Continue Zosyn with Zosyn IV fluids when tolerating po. Replace potassium and phosphorus. Await urine cultures monitor vancomycin level. Pain control. Continue losartan and beta-blockers. DVT prophylaxis. Continue PPIs. A.m. labs
[2020-09-17] MEDS ORDERED: Vancomycin 1 GM in Premix Bag 1 BAG IVPB SCH (22:30)
[2020-09-18] MEDS: Acetaminophen 325 MG TAB PO SCH ×3 (00:35→10:55)
[2020-09-18] MEDS: Dextrose 5 % And 0.9 % NaCl 1,000 ML IV SCH ×2 (02:44→08:46)
[2020-09-18 04:51] LABS: #Eosinphils 0.1 thou/uL (0.0-0.7); #Lymphocytes 1.5 thou/uL (1.20-3.40); #Monocytes 0.6 thou/uL (0.11-0.59); #Neutrophils 3.8 thou/uL (1.40-6.50); %Basophils 0.4 % (0.0-1.0); %Eosinophils 1.2 % (0.0-10.0); %Lymphocytes 25.4 % (21.0-51.0); %Monocytes 9.4 % (0.0-10.0); %Neutrophils 63.6 % (42.0-75.0); Hemoglobin 10.8 g/dL (12.0-16.0); Mean Corpuscular HGB CONC 33.4 g/dL (32.0-36.0); Mean Corpuscular Volume 86.8 fL (78.0-98.0); Mean Platelet Volume 7.5 fL (7.4-10.4); Platelet Count 141 thou/uL (130-400); RBC Distribution Width 13.5 % (11.5-14.5); Red Blood Cell (RBC) Count 3.73 mill/uL (4.20-5.40)
[2020-09-18 05:07] LABS: ALT (SGPT) 203 U/L (8-55); AST (SGOT) 197 U/L (5-34); Albumin 3.5 g/dL (3.4-4.8); Alkaline Phosphatase 172 U/L (40-110); Bilirubin, Direct 0.5 mg/dL (0.1-0.3); Bilirubin, Total 0.9 mg/dL (0.2-1.2); Lipase 89 U/L (8-78); Protein, Total 5.6 g/dL (6.0-8.3)
[2020-09-18 05:14] LABS: Anion Gap 12 mmol/L (10-20); BUN (Urea Nitrogen) 6 mg/dL (9.8-20.1); Calc. Creatinine Clearance 105 mL/min (70-130); Calcium 7.9 mg/dL (7.8-10.44); Carbon Dioxide 21 mmol/L (23-31); Chloride 109 mmol/L (98-107); Glucose 107 mg/dL (80-115); Magnesium 2.2 mg/dL (1.6-2.6); Phosphorus 2.8 mg/dL (2.3-4.7); Potassium 3.5 mmol/L (3.5-5.1); Sodium 138 mmol/L (136-145)
[2020-09-18] MEDS: Piperacillin/Tazobactam 4.5 GM in Sodium Chloride 0.9% 100 ML IVPB SCH (05:37)
--- NOTE | 2020-09-18 07:49 | PDOC.HOSPP ---
- Subjective Encounter Date: 09/18/20 Encounter Time: 10:45 Subjective: Patient with improving postop soreness. Was able to eat some solid food for breakfast. Ready to go home. - Objective Vital Signs & Weight: Vital Signs (12 hours) Temp Pulse Resp BP Pulse Ox 09/18/20 04:06 97.5 F L 65 20 155/74 H 96 09/17/20 19:50 98.8 F 72 18 142/69 H 96 Weight Weight 177 lb 4.8 oz I&O: 09/17/20 09/18/20 09/19/20 06:59 06:59 06:59 Intake Total 3393 2400 Output Total 500 Balance 2893 2400 Result Diagrams: 09/18/20 04:11 09/18/20 04:11 Hospitalist ROS - Review of Systems Constitutional: denies: fever, chills Respiratory: denies: cough, shortness of breath Cardiovascular: denies: chest pain, palpitations Gastrointestinal: reports: abdominal pain. denies: nausea, vomiting, diarrhea, constipation Genitourinary: denies: dysuria, hematuria - Medication Medications: Active Medications Generic Name Dose Route Start Last Admin Trade Name Freq PRN Reason Stop Dose Admin Acetaminophen 650 mg 09/16/20 18:00 09/18/20 05:36 Acetaminophen 325 Mg Tab PO 650 mg Q6HR BITA Administration Enoxaparin Sodium 40 mg 09/16/20 21:00 09/17/20 20:17 Enoxaparin Sodium 40 Mg/0.4 Ml Syringe SC 40 mg 2100 BITA Administration Vancomycin HCl 1.5 gm/ Device 300 mls @ 200 mls/hr 09/16/20 09:00 09/17/20 20:18 IVPB 300 mls Q12HR BITA Administration Dextrose/Sodium Chloride 1,000 mls @ 75 mls/hr 09/16/20 06:15 09/18/20 02:44 D5 0.9% Ns IV Not Given .[id number] BITA Piperacillin Sod/Tazobactam 100 mls @ 200 mls/hr 09/16/20 21:00 09/18/20 05:37 Sod 4.5 gm/ Sodium Chloride IVPB 100 mls 0500,1300,2100 BITA Administration Metoprolol Succinate 50 mg 09/17/20 09:00 09/17/20 09:11 Metoprolol Succinate Xl 50 Mg Tab PO 50 mg DAILY BITA Administration Pantoprazole Sodium 40 mg 09/17/20 18:00 09/17/20 17:37 Pantoprazole 40 Mg Vial IVP 40 mg Q24HR BITA Administration Sodium Chloride 10 ml 09/16/20 09:00 09/17/20 20:18 Flush - Normal Saline 10 Ml Syringe IVF 10 ml Q12HR BITA Administration Tramadol HCl 100 mg 09/16/20 16:59 09/17/20 15:29 Tramadol Hcl 50 Mg Tab PO 100 mg Q6H PRN Administration Severe Pain (7-10) - Exam General Appearance: NAD, awake alert ENT: moist mucosa Heart: RRR, no murmur, no gallops, no rubs Respiratory: CTAB, no wheezes, no rales, no ronchi Gastrointestinal: soft, non-distended, normal bowel sounds, no guarding, no rigidity Gastrointestinal - other findings: mod TTP ELIZABETH and RUQ Extremities: no edema Psychiatric: normal affect, normal behavior, A&O x 3 Hosp A/P - Plan Acute cholecystitis with cholelithiasis requiring cholecystectomy and ERCP Recent CT-guided cholecystostomy for cholecystitis Hemobilia/Mild acute pancreatitis Concern for early cholangitis Hypokalemia/hypophosphatemia Abnormal LFTs- improving Recent non-ST elevation [place] with negative cardiac catheterization Obesity with a BMI 30.4 Enterococcus UTI Plan: Patient cleared for discharge by surgery and GI. Ok to restart ASA per Dr. Juárez. Will need f/u in Surgery clinic in 2 weeks with repeat CMP. Will d/c home today. Stop HCTZ and increase Losartan per Cardiology orders.
[2020-09-18] MEDS ORDERED: Saccharomyces boulardii 250 MG CAP PO SCH (09:00)
[2020-09-18] MEDS ORDERED: Losartan 25 MG TAB PO SCH (09:00)
[2020-09-18] MEDS ORDERED: Potassium Chloride 20 MEQ TAB PO SCH (09:00)
[2020-09-18 09:14] LABS: Vancomycin, Trough 17.8 ug/mL
--- NOTE | 2020-09-18 09:52 | PRG ---
DATE OF SERVICE: 09/18/2020 SUBJECTIVE: Ms. Mandujano is feeling quite a bit better today. She has been tolerating her clear liquid diet. Nausea is minimal. She still has some epigastric soreness, but this has improved. She has been ambulating about the room. OBJECTIVE: VITAL SIGNS: Temperature 97.9, pulse 55, blood pressure 163/74, 96% oxygen saturation on room air. GENERAL: No acute distress. Not jaundiced. Sitting up in bed comfortably. HEART: Regular rate and rhythm. LUNGS: Clear to auscultation bilaterally. ABDOMEN: Bowel sounds are active. Soft. Some tenderness to palpation in the epigastrium. No guarding or rebound tenderness. EXTREMITIES: No peripheral edema. LABORATORY STUDIES: Hemoglobin 10.8, WBC 6.0, platelets 141. Sodium 138, potassium 3.5, BUN 6, creatinine 0.68, phosphorus 2.8, magnesium 2.2. LFTs have all improved. Total bilirubin has normalized to 0.9, direct bilirubin 0.5, alkaline phosphatase is down to 172. AST is down from 496 to 197, ALT is down from 275 to 203. Lipase is down from 106 to 89. Albumin is 3.5. ASSESSMENT/PLAN: 1. Hemobilia, with extensive blood clots filling the gallbladder and common bile duct, now status post laparoscopic cholecystectomy and successful ERCP with biliary sphincterotomy and extraction of blood clots from the biliary system two days ago on 09/16/2020. 2. Early cholangitis, secondary to hemobilia. The patient has remained afebrile and hemodynamically stable; on vancomycin and Zosyn. 3. Elevated LFTs. This was secondary to her severe hemobilia. LFTs have markedly improved since yesterday, as expected. There is no evidence of any ongoing biliary obstruction. Lipase also improving as well as clinically improving. Surgical Service has advanced the patient to a regular diet. No further recommendations from a GI perspective. We will sign off, but please call back anytime with questions or concerns. Job ID: [id number]
[2020-09-18 12:17] VITALS: BP 152/71; TEMP 98.7
--- NOTE | 2020-09-19 07:01 | DIS ---
DATE OF ADMISSION: 09/16/2020 DATE OF DISCHARGE: 09/18/2020 PRIMARY CARE PHYSICIAN: Leida Gamez. REASON FOR ADMISSION: Cholangitis. DIAGNOSES AT DISCHARGE: 1. Acute cholecystitis with cholelithiasis and cholangitis, resolved. 2. Hemobilia. 3. Mild acute pancreatitis. 4. Hypokalemia and hypophosphatemia, resolved. 5. Recent non ST-elevation myocardial infarction. 6. Obesity. 7. Enterococcus faecalis urinary tract infection. PROCEDURES: 1. CT of the abdomen and pelvis with IV contrast showing a cholecystostomy drainage tube in place, a distended gallbladder with a large hematoma completely filling it. 2. CT of the head without IV contrast showing no acute intracranial process. There is some right frontal sinus and left mastoid air cell opacification consistent with sinusitis. 3. Laparoscopic cholecystectomy and removal of percutaneous cholecystostomy tube. 4. ERCP with biliary sphincterotomy, extraction of common bile duct debris specifically extensive blood clots. CONSULTATIONS: 1. General Surgery, Dr. Juárez. 2. Gastroenterology, Dr. Oviedo. 3. Cardiology, Dr. Isbell. SUMMARY OF HOSPITAL COURSE: This is a 65-year-old female with a history of a recent admission for a [id number] myocardial infarction, who also was managed for cholecystitis and pancreatitis with a cholecystostomy tube placement. She was discharged the day prior to this admission, however, started to feel unwell and had nausea and vomiting with poor p.o. intake and worsening abdominal pain, also was noted to have altered mental status, was brought back into the emergency room. The patient was found to have her gallbladder distended with blood clot with multiple lab abnormalities and eventually diagnosed with possible early cholangitis. The patient was admitted to the hospital. She was put on Zosyn and vancomycin. She had General Surgery and GI consults. She did have her cholecystectomy done with removal of the tube as well as an ERCP with a sphincterotomy as above. The patient did well postoperatively. She was able to take clear liquids and then advanced up to a normal diet. She did eat solid food this morning without any difficulty and is eager to go home. The patient did grow Enterococcus faecalis from her urine, which was pansensitive. She is being transitioned to oral Omnicef for another 10 days and is being discharged home. DISCHARGE MANAGEMENT: Discharged home. ACTIVITY: As tolerated. DIET: Healthy heart diet. FOLLOWUP: Follow up with Dr. Juárez in the surgery clinic in 2 weeks and get a repeat CMP and CBC at that time. Also follow up with primary care physician Leida Gamez as needed. DISCHARGE MEDICATIONS: 1. Cefdinir 300 mg twice a day for 10 more days, 20 caps dispensed. 2. Losartan 50 mg daily, 30 tablets dispensed. The patient is to discontinue her previous lower dose losartan and her hydrochlorothiazide and potassium supplementation. 3. Albuterol as needed for shortness of breath, wheezing, or coughing. 4. Aspirin 81 mg daily. 5. Lexapro 20 mg daily. 6. Fluticasone one spray in each nostril daily. 7. Hydrocortisone cream as needed. 8. Loratadine 10 mg daily. 9. Metoprolol succinate 50 mg daily. 10. Montelukast sodium 10 mg at night. 11. Stool softener as needed. 12. Tizanidine as needed. 13. Tramadol as needed. 14. Triamcinolone cream as needed. TIME SPENT: Arranging the details of this discharge took 35 minutes. Job ID: [id number]
--- NOTE | 2020-09-20 23:06 | PQF ---
Dear : Sandeep Disla Date 09/21/2020 Please exercise your independent, professional judgment in responding to the clarification form. Clinical indicators are provided on the bottom of this form for your review Can you please further clarify the diagnosis of the patient? Please check appropriate box(es): [ ] Sepsis [ X ] Severe sepsis with associated acute organ dysfunction: [ X ] Encephalopathy (metabolic) (septic) [ ] No sepsis with metabolic encephalopathy [ ] Other diagnosis please specify [ ] Unable to determine Physician Signature: Date/Time: For continuity of documentation, please document condition throughout progress notes and discharge summary. Thank You. To be completed by CDI/Coding staff for physician review: Present Clinical Indicators - Signs / Symptoms / Labs Results and Location in Medical Record [ x ] VS: BP 179/93, P: 73, RR: 18 T: 98.1 ED Provider pg.2 [ x ] Abdominal pain and vomiting H and P pg.1 [ x ] Alteration in metal status H and P pg.1 [ x ] Labs show no leukocytosis H and P pg.1 [ x ] Possible Sepsis H and P pg.3 [ x ] Acute encephalopathy likely due to sepsis H and P pg.4 [ x ] Urine culture- Enterococcus faecalis Microbiology [ x ] Blood culture- no growth at 48 hours Microbiology Present Risk Factors Results and Location in Medical Record [ x ] Acute cholecystitis with cholelithiasis and cholangitis DS pg.1 [ x ] Mild acute pancreatitis DS pg.1 [ x ] Enterococcus faecalis- UTI DS pg.1 [ x ] 65 years old H and P pg.1 Present Treatments Results and Location in Medical Record [ x ] IV Fluids MAR [ x ] Zosyn 4.5gm IV MAR [ x ] Vancomycin 1.5gm IV MAR [ x ] Urine culture Microbiology [ x ] Blood culture Microbiology CDS/Solution Manager Signature: Paulino Rea Phone #: ext [phone] Date 09/21/20 This is a permanent part of the Medical Record [facility]
--- NOTE | 2020-09-21 17:39 | PQF ---
Dear : Sandeep Disla Date 09/21/20 Please exercise your independent, professional judgment in responding to the clarification form. Clinical indicators are provided on the bottom of this form for your review Can you please further clarify the diagnosis of the patient? Please check appropriate box(es): [ ] cholangitis/ sepsis is a complication of recent surgery [ ] cholangitis/ sepsis is a complication of recent surgery [ ] Other diagnosis please specify [ X ] Unable to determine Physician Signature: Date/Time: For continuity of documentation, please document condition throughout progress notes and discharge summary. Thank You. To be completed by CDI/Coding staff for physician review: Present Clinical Indicators - Signs / Symptoms / Labs Results and Location in Medical Record [ x ] Severe Sepsis Physician Documentation 09/20 pg.1 [ x ] Worsening abdominal pain with alteration in mental status H and P pg.1 [ x ] Status post cholecystectomy tube placement 2 days ago Consult pg.1 09/16 Dr. Oviedo [ x ] Patient altered recent surgical procedure H and P pg.3 [ x ] Worsening abdominal pain in the context of recent cholecystectomy tube placement Consult pg..3 Dr. Oviedo [ x ] Cholecystectomy tube is in place and was returning a large amount of reddish bile concerning for hemobilia Consult pg.2 / Preet Present Risk Factors Results and Location in Medical Record [ x ] Status post cholecystectomy tube placement H and P pg.4 [ x ] Cholangitis H and P pg.4 [ x ] Recent acute cholecystitis with cholelithiasis Consult pg.2Dr. Ohaju [ x ] Mild pancreatitis DS pg.1 Present Treatments Results and Location in Medical Record [ x ] Laparoscopic cholecystectomy OP report pg.1 [ x ] Removal of percutaneous cholecystectomy tube OP report pg.1 [ x ] ERCP OP report pg.1 [ x ] IV Fluids MAR [ x ] IV Antibiotics MAR CDS/Cna Hha Signature: Paulino Rea Phone #: ext [phone] Date 09/21/2020 This is a permanent part of the Medical Record [facility]
--- NOTE | 2020-09-23 12:18 | EKG ---
Test Reason : Blood Pressure : / mmHG Vent. Rate : 073 BPM Atrial Rate : 073 BPM P-R Int : 142 ms QRS Dur : 084 ms QT Int : 428 ms P-R-T Axes : 017 -30 019 degrees QTc Int : 471 ms Normal sinus rhythm Left axis deviation Abnormal ECG Confirmed by REJI GRIMES DO ([id number]), commercial production editor MARY LOU SALAZAR ([id number] on 09/23/2020 12:18:03 PM Referred By: Confirmed By:REJI GRIMES DO
== END 2020-09-18 13:09 | disposition home or self-care (01) | DRG 853 ==
LOC: ERS 01:33 → 2NO 04:45
PROVIDERS: ADMIT Student in an Organized Health Care Education/Training Program; ATTEND Emergency Medicine
PROC: 0FP440Z Removal of Drainage Device from Gallbladder, Percutaneous Endoscopic Approach (ICD-10-PCS; principal; 2020-09-16)
PROC: 0FT44ZZ Resection of Gallbladder, Percutaneous Endoscopic Approach (ICD-10-PCS; 2020-09-16)
PROC: 0FC98ZZ Extirpation of Matter from Common Bile Duct, Via Natural or Artificial Opening Endoscopic (ICD-10-PCS; 2020-09-16)
PROC: BF131ZZ Fluoroscopy of Gallbladder and Bile Ducts using Low Osmolar Contrast (ICD-10-PCS; 2020-09-16)
DX: A41.9 Sepsis, unspecified organism (principal); I21.4 Non-ST elevation (NSTEMI) myocardial infarction; G93.41 Metabolic encephalopathy; K85.90 Acute pancreatitis without necrosis or infection, unspecified; K80.62 Calculus of gallbladder and bile duct with acute cholecystitis without obstruction; N39.0 Urinary tract infection, site not specified; Z20.822 Contact with and (suspected) exposure to COVID-19; K83.8 Other specified diseases of biliary tract; R65.20 Severe sepsis without septic shock; E87.6 Hypokalemia; E83.39 Other disorders of phosphorus metabolism; B95.2 Enterococcus as the cause of diseases classified elsewhere; I10 Essential (primary) hypertension; J44.9 Chronic obstructive pulmonary disease, unspecified; F41.9 Anxiety disorder, unspecified; F32.9 Major depressive disorder, single episode, unspecified; Z90.49 Acquired absence of other specified parts of digestive tract; Z88.8 Allergy status to other drugs, medicaments and biological substances; Z79.899 Other long term (current) drug therapy
CPT/HCPCS: 36415; 70450; 71045; 74177; 74330; 80048; 80053; 80076; 80202; 81001; 82550; 82553; 83605; 83690; 83735; 84100; 84484; 85025; 85610; 85730; 87040; 87077; 87086; 87186; 88304; 93005; 96365; 96366; 96367; 96375; C9113; J0360; J1100; J1610; J1642; J1650; J2270; J2370; J2405; J2543; J2550; J2704; J3010; J3370; J3475; J3480; J3490; J7030; P9045; Q9967; S0020

== ENCOUNTER 2020-09-25 09:05 | Outpatient (CLI) | payer MEDICARE, OTHER ==
--- NOTE | 2020-09-25 09:34 | RAD ---
2 views of the lumbar spine: 09/25/2020 COMPARISON: 08/08/2020 HISTORY: Lumbar stenosis FINDINGS: There is retrolisthesis at L3-4 measuring 5-6 mm and anterolisthesis at L4-5 measuring 6-7 mm. There is disc space narrowing and degenerative endplate change with anterior osteophyte formation at L1-2 through L4-5, stable when compared to the prior exam. Multilevel lower lumbar spine facet hypertrophic change. No acute fracture or evidence of dislocation . IMPRESSION: Multilevel lumbar spine degenerative change, not significantly changed when compared to t he 08/08/2020 exam.
== END 2020-09-25 09:06 | disposition home or self-care (01) ==
LOC: TBSIIMAG 09:05
PROVIDERS: ATTEND Neurological Surgery
DX: M48.062 Spinal stenosis, lumbar region with neurogenic claudication (principal); M47.816 Spondylosis without myelopathy or radiculopathy, lumbar region
CPT/HCPCS: 72100

== ENCOUNTER 2020-12-04 08:23 | Outpatient (CLI) | payer MEDICARE, OTHER ==
[2020-12-04] MEDS ORDERED: Magnevist 469MG/ML 20 ML VIAL ONE (10:17)
== END 2020-12-04 08:24 | disposition home or self-care (01) ==
LOC: MRI 08:23
PROVIDERS: ATTEND Internal Medicine
DX: K83.8 Other specified diseases of biliary tract (principal); R94.5 Abnormal results of liver function studies; K86.89 Other specified diseases of pancreas
CPT/HCPCS: 74183; A9579

== ENCOUNTER 2021-01-17 09:48 | Outpatient (CLI) | payer MEDICARE, OTHER | END 2021-01-17 09:49 | disposition home or self-care (01) | LOC: BICMAMMO 09:48 | PROVIDERS: ATTEND Nurse Practitioner Family | DX: Z12.31 Encounter for screening mammogram for malignant neoplasm of breast (principal) | CPT/HCPCS: 77063; 77067 ==

== ENCOUNTER 2021-05-17 12:26 | Outpatient (CLI) | payer MEDICARE, OTHER | END 2021-05-17 12:27 | disposition home or self-care (01) | LOC: TBSIIMAG 12:26 | PROVIDERS: ATTEND Neurological Surgery | DX: M48.062 Spinal stenosis, lumbar region with neurogenic claudication (principal); M47.816 Spondylosis without myelopathy or radiculopathy, lumbar region | CPT/HCPCS: 72100; 72148 ==

== ENCOUNTER 2021-09-25 14:25 | Outpatient (CLI) | payer MEDICARE, OTHER | END 2021-09-25 14:26 | disposition home or self-care (01) | LOC: BICRAD 14:25 | PROVIDERS: ATTEND Nurse Practitioner Family | DX: U07.1 COVID-19 (principal) | CPT/HCPCS: 71046 ==

== ENCOUNTER 2022-02-05 11:11 | Outpatient (CLI) | payer MEDICARE, OTHER | END 2022-02-05 11:12 | disposition home or self-care (01) | LOC: BICRAD 11:11 | PROVIDERS: ATTEND Nurse Practitioner Family | DX: J44.9 Chronic obstructive pulmonary disease, unspecified (principal); I77.6 Arteritis, unspecified; R91.1 Solitary pulmonary nodule; R63.5 Abnormal weight gain; I10 Essential (primary) hypertension | CPT/HCPCS: 71046 ==

== ENCOUNTER 2024-07-27 12:34 | Outpatient (CLI) | payer MEDICARE, OTHER | END 2024-07-27 12:35 | disposition home or self-care (01) | LOC: BICMAMMO 12:34 | PROVIDERS: ATTEND Nurse Practitioner Family | DX: Z12.31 Encounter for screening mammogram for malignant neoplasm of breast (principal); Z80.3 Family history of malignant neoplasm of breast | CPT/HCPCS: 77063; 77067 ==

== ENCOUNTER 2024-11-11 08:44 | Outpatient (CLI) | payer MEDICARE, OTHER | END 2024-11-11 08:45 | disposition home or self-care (01) | LOC: BICRAD 08:44 | PROVIDERS: ATTEND Nurse Practitioner Family | DX: U09.9 Post COVID-19 condition, unspecified (principal); R05.3 Chronic cough | CPT/HCPCS: 71046 ==

== ENCOUNTER 2025-04-01 09:33 | Outpatient (CLI) | payer MEDICARE, OTHER | END 2025-04-01 09:34 | disposition home or self-care (01) | LOC: RAD 09:33 | PROVIDERS: ATTEND Internal Medicine | DX: J44.9 Chronic obstructive pulmonary disease, unspecified (principal); R06.02 Shortness of breath; I51.7 Cardiomegaly | CPT/HCPCS: 71046 ==

== ENCOUNTER 2025-08-02 09:18 | Outpatient (CLI) | payer MEDICARE, OTHER | END 2025-08-02 09:19 | disposition home or self-care (01) | LOC: BICMAMMO 09:18 | PROVIDERS: ATTEND Nurse Practitioner Family | DX: Z12.31 Encounter for screening mammogram for malignant neoplasm of breast (principal); Z80.3 Family history of malignant neoplasm of breast | CPT/HCPCS: 77063; 77067 ==